=== PATIENT | female | born 1970 | race Caucasian/White ===

== ENCOUNTER → 2019-07-14 11:01 | Outpatient (BNVA) | payer MEDICAID, SELFPAY | PROVIDERS: Family Provider Nurse Practitioner Family; PCP Nurse Practitioner Family; Visit Provider Anesthesiology | DX: G89.29 Other chronic pain (principal); M47.816 Spondylosis without myelopathy or radiculopathy, lumbar region; M48.061 Spinal stenosis, lumbar region without neurogenic claudication; M54.16 Radiculopathy, lumbar region; M46.96 Unspecified inflammatory spondylopathy, lumbar region; M79.651 Pain in right thigh; M79.652 Pain in left thigh; M54.12 Radiculopathy, cervical region; M25.511 Pain in right shoulder; M25.512 Pain in left shoulder | CPT/HCPCS: 99214 ==

== ENCOUNTER 2019-08-25 11:45 | Outpatient (CLI) | payer MEDICAID, SELFPAY ==
--- NOTE | 2019-08-25 11:55 | XR_ITS ---
WS: [id number] Lumbar spine, 3 views, 08/25/2019 Clinical Data: BACK PAIN Comparison: Lateral lumbar spine, 10/07/2012.. Findings: No compression fractures are seen. There is degenerative disc narrowing at L5-S1.There is an anteroli sthesis of L5 on S1 of 1.1 cm.. The transverse processes and SI joints are normal. Bilateral L5-S1 spondylolysis is present. There are clips in the right upper quadrant from a cholecys tectomy. There is a large amount of fecal material throughout the colon. XR/XR lumbar spine 2-3V* [id number] Impression: 1. No change in grade 1 spondylolisthesis of L5 on S1. 2. No change in degenerative disc disease at L5-S1.
== END 2019-08-25 11:46 | disposition home or self-care (01) ==
PROVIDERS: Family Provider Nurse Practitioner Family; PCP Nurse Practitioner Family; Visit Provider Nurse Practitioner Family
DX: M43.17 Spondylolisthesis, lumbosacral region (principal); M51.37 Other intervertebral disc degeneration, lumbosacral region
CPT/HCPCS: 72100

== ENCOUNTER → 2019-09-06 12:58 | Outpatient (BNVA) | payer MEDICAID, SELFPAY | PROVIDERS: Family Provider Nurse Practitioner Family; PCP Nurse Practitioner Family; Visit Provider Nurse Practitioner | DX: G89.29 Other chronic pain (principal); M54.16 Radiculopathy, lumbar region; M54.2 Cervicalgia; Z79.891 Long term (current) use of opiate analgesic | CPT/HCPCS: 99213; 99214 ==

== ENCOUNTER → 2020-03-21 10:00 | Outpatient (BNVA) | payer MEDICAID, SELFPAY | PROVIDERS: Family Provider Nurse Practitioner Family; PCP Nurse Practitioner Family; Visit Provider Nurse Practitioner | DX: G89.29 Other chronic pain (principal); M54.16 Radiculopathy, lumbar region; M47.816 Spondylosis without myelopathy or radiculopathy, lumbar region; M48.061 Spinal stenosis, lumbar region without neurogenic claudication; M46.96 Unspecified inflammatory spondylopathy, lumbar region; M54.9 Dorsalgia, unspecified; M54.12 Radiculopathy, cervical region; M25.511 Pain in right shoulder; M25.512 Pain in left shoulder; R29.6 Repeated falls; Z79.891 Long term (current) use of opiate analgesic | CPT/HCPCS: 99213; 99214 ==

== ENCOUNTER 2020-04-17 13:33 | Outpatient (RCR) | payer MEDICARE, MEDICAID, SELFPAY | END 2020-05-11 23:59 | disposition home or self-care (01) | LOC: SPT 13:33 | PROVIDERS: PCP Nurse Practitioner Family; Referring Provider Nurse Practitioner; Visit Provider Nurse Practitioner | DX: M54.9 Dorsalgia, unspecified (principal); G89.29 Other chronic pain | CPT/HCPCS: 97110; 97162 ==

== ENCOUNTER → 2020-06-12 10:20 | Outpatient (BNVA) | payer MEDICARE, MEDICAID, SELFPAY | PROVIDERS: PCP Nurse Practitioner Family; Visit Provider Anesthesiology | DX: G89.29 Other chronic pain (principal); M54.12 Radiculopathy, cervical region; M25.511 Pain in right shoulder; M25.512 Pain in left shoulder; M54.16 Radiculopathy, lumbar region; M46.96 Unspecified inflammatory spondylopathy, lumbar region; M48.061 Spinal stenosis, lumbar region without neurogenic claudication; M47.816 Spondylosis without myelopathy or radiculopathy, lumbar region; M54.9 Dorsalgia, unspecified; Z79.891 Long term (current) use of opiate analgesic | CPT/HCPCS: 99214 ==

== ENCOUNTER → 2020-09-04 13:00 | Outpatient (BNVA) | payer MEDICARE, MEDICAID, SELFPAY | PROVIDERS: PCP Nurse Practitioner Family; Visit Provider Nurse Practitioner | DX: G89.29 Other chronic pain (principal); M54.16 Radiculopathy, lumbar region; M47.816 Spondylosis without myelopathy or radiculopathy, lumbar region; M48.061 Spinal stenosis, lumbar region without neurogenic claudication; M54.9 Dorsalgia, unspecified; M54.12 Radiculopathy, cervical region; Z79.891 Long term (current) use of opiate analgesic | CPT/HCPCS: 99214 ==

== ENCOUNTER → 2020-11-27 12:43 | Outpatient (BNVA) | payer MEDICARE, MEDICAID, SELFPAY | PROVIDERS: PCP Nurse Practitioner Family; Visit Provider Anesthesiology | DX: G89.29 Other chronic pain (principal); M54.16 Radiculopathy, lumbar region; M54.9 Dorsalgia, unspecified; M46.96 Unspecified inflammatory spondylopathy, lumbar region; M48.061 Spinal stenosis, lumbar region without neurogenic claudication; M47.816 Spondylosis without myelopathy or radiculopathy, lumbar region; M54.12 Radiculopathy, cervical region; Z79.891 Long term (current) use of opiate analgesic | CPT/HCPCS: 99214 ==

== ENCOUNTER 2021-02-27 11:44 | Outpatient (CLI) | payer MEDICARE, MEDICAID, SELFPAY ==
[2021-02-27 12:33] LABS: Estmated Average Glucose 154
[2021-02-27 12:49] LABS: Free T4 Free Thyroxine 1.09 ng/dL (0.82-1.77); Thyroid Stimulating Hormone 1.03 uIU/mL (0.27-4.20)
== END 2021-02-27 11:45 | disposition home or self-care (01) ==
LOC: LAB 11:52
PROVIDERS: PCP Nurse Practitioner Family; Visit Provider Internal Medicine
DX: E11.40 Type 2 diabetes mellitus with diabetic neuropathy, unspecified (principal)
CPT/HCPCS: 36415; 83036; 84439; 84443

== ENCOUNTER → 2021-03-26 13:46 | Outpatient (BNVA) | payer MEDICARE, MEDICAID, SELFPAY | PROVIDERS: PCP Nurse Practitioner Family; Visit Provider Anesthesiology | DX: G89.29 Other chronic pain (principal); M54.16 Radiculopathy, lumbar region; M48.061 Spinal stenosis, lumbar region without neurogenic claudication; M47.816 Spondylosis without myelopathy or radiculopathy, lumbar region; M46.96 Unspecified inflammatory spondylopathy, lumbar region; M54.12 Radiculopathy, cervical region; Z79.891 Long term (current) use of opiate analgesic | CPT/HCPCS: 99214 ==

== ENCOUNTER → 2021-07-16 14:24 | Outpatient (BNVA) | payer MEDICARE, MEDICAID, SELFPAY | PROVIDERS: PCP Nurse Practitioner Family; Visit Provider Internal Medicine | DX: E11.42 Type 2 diabetes mellitus with diabetic polyneuropathy (principal); E03.9 Hypothyroidism, unspecified; Z79.84 Long term (current) use of oral hypoglycemic drugs | CPT/HCPCS: 99214 ==

== ENCOUNTER → 2021-09-29 09:58 | Outpatient (BNVA) | payer MEDICARE, MEDICAID, SELFPAY | PROVIDERS: PCP Nurse Practitioner Family; Visit Provider Internal Medicine | DX: E11.40 Type 2 diabetes mellitus with diabetic neuropathy, unspecified (principal); E11.42 Type 2 diabetes mellitus with diabetic polyneuropathy; R29.6 Repeated falls; E03.9 Hypothyroidism, unspecified; Z79.84 Long term (current) use of oral hypoglycemic drugs | CPT/HCPCS: 80053; 80061; 83036; 84439; 84443; 99214 ==

== ENCOUNTER 2021-09-29 10:59 | Outpatient (CLI) | payer MEDICARE, MEDICAID, SELFPAY ==
[2021-09-29 12:09] LABS: Estmated Average Glucose 148; Hemoglobin A1C 6.8 % (4.0-6.0)
[2021-09-29 12:37] LABS: Alanine Aminotransferase 26 U/L (0-33); Albumin Level 4.5 g/dL (3.5-5.2); Alkaline Phosphatase 77 IU/L (35-105); Anion Gap 15.4 (5-19); Aspartate Amino Transferase 28 U/L (0-32); Blood Urea Nitrogen 11 mg/dL (6-20); Calcium 9.3 mg/dL (8.5-10.5); Carbon Dioxide 25 mmol/L (22-29); Chloride 104 mmol/L (98-107); Cholesterol 246 mg/dL (0-200); Globulin 3.2 g/dL (1.3-4.6); Glomerular Filtration Rate 87.5 mL/min (90-130); Glucose 113 mg/dL (65-115); HDL Cholesterol 60 mg/dL (60-100); LDL Cholesterol Calculated 157 mg/dL (50-129); LDL HDL Ratio 2.62 RATIO (0.00-3.22); Osmolality Calculated 290 mOsm/kg (285-295); Potassium 4.4 mmol/L (3.5-5.1); Sodium 140 mmol/L (136-145); Thyroid Stimulating Hormone 1.39 uIU/mL (0.27-4.20); Total Bilirubin 0.2 mg/dL (0.15-1.2); Total Protein 7.7 g/dL (6.6-8.7); Triglycerides 147 mg/dL (0-150)
[2021-09-29 12:38] LABS: Free T4 Free Thyroxine 1.15 ng/dL (0.82-1.77)
== END 2021-09-29 11:00 | disposition home or self-care (01) ==
LOC: LAB 11:10
PROVIDERS: PCP Nurse Practitioner Family; Visit Provider Internal Medicine
DX: E03.9 Hypothyroidism, unspecified (principal); E11.40 Type 2 diabetes mellitus with diabetic neuropathy, unspecified; R29.6 Repeated falls
CPT/HCPCS: 80053; 80061; 83036; 84439; 84443

== ENCOUNTER → 2021-10-09 09:35 | Outpatient (BNVA) | payer MEDICARE, MEDICAID, SELFPAY | PROVIDERS: PCP Nurse Practitioner Family; Visit Provider Internal Medicine | DX: E11.42 Type 2 diabetes mellitus with diabetic polyneuropathy (principal); E11.649 Type 2 diabetes mellitus with hypoglycemia without coma; E78.2 Mixed hyperlipidemia; E03.9 Hypothyroidism, unspecified; R29.6 Repeated falls; Z79.84 Long term (current) use of oral hypoglycemic drugs | CPT/HCPCS: 99214 ==

== ENCOUNTER → 2022-04-16 12:55 | Outpatient (BNVA) | payer MEDICARE, MEDICAID, SELFPAY | PROVIDERS: PCP Nurse Practitioner Family; Visit Provider Podiatrist Foot & Ankle Surgery | DX: E11.40 Type 2 diabetes mellitus with diabetic neuropathy, unspecified (principal); L60.3 Nail dystrophy; M20.41 Other hammer toe(s) (acquired), right foot; M20.42 Other hammer toe(s) (acquired), left foot; M21.41 Flat foot [pes planus] (acquired), right foot; M21.42 Flat foot [pes planus] (acquired), left foot; Z79.84 Long term (current) use of oral hypoglycemic drugs | CPT/HCPCS: 11055; 11721 ==

== ENCOUNTER 2022-04-18 07:38 | Emergency (ER) | payer MEDICARE, MEDICAID, SELFPAY ==
[2022-04-18 07:43] VITALS: BP 180/72; PULSE 84; RESP 15; TEMP 36.4; O2SAT 98; BMI 34.9
--- NOTE | 2022-04-18 07:43 | W.ED.FEMALGU ---
HPI - Female Genitourinary General: Chief complaint: Back Pain/Injury Stated complaint: kidney stones Time Seen by Provider: 04/18/22 07:43 History of Present Illness: back pain and hx of kidney stones Location of symptoms: low back Severity scale (1-10): 6 Associated symptoms: Reports abdominal pain and nausea Review of Systems General: Reports: 10 or more systems reviewed and unremarkable except in HPI and below Const: Denies: fever(s) or chills Resp: Denies: productive cough GI: Reports: abdominal pain, nausea and vomiting : Reports: flank pain Musc: Reports: back pain Bang/Lymph: Denies: easy bruising PFSH ED PFSH: Medical History Cervical radiculopathy DDD (degenerative disc disease) Encounter for long-term use of opiate analgesic Facet syndrome, lumbar Lumbar radiculitis Lumbar spondylitis Neck pain Shoulder pain, bilateral Spinal stenosis of lumbar region Type 2 diabetes mellitus Surgical History S/P section S/P cholecystectomy S/P hysterectomy Family History Other Cancer Social History Smoking and tobacco status: never smoked Second hand smoke exposure: No Alcohol intake: never Adopted: No Caregiver/support person: No Lives independently: Yes History of recent travel: No Physical Exam Const: COMMON NORMALS: no acute distress, patient oriented x3, no limitations and alert GENERAL APPEARANCE: cooperative and comfortable ORIENTATION/CONSCIOUSNESS: Yes awake, Yes oriented to person, Yes oriented to place and Yes oriented to time HENMT: COMMON NORMALS: normocephalic, atraumatic, external ears normal, EAC's normal, TM's normal bilaterally and Normal external nose present HEAD & SCALP: normal to inspection, normocephalic and atraumatic FACE & SINUS: normal facial exam, sinuses nontender and face symmetric NOSE: Normal external nose present, Normal nares present and No nasal discharge present EXTERNAL EAR: Yes external ears normal EXTERNAL AUDITORY CANAL: EAC's normal TYMPANIC MEMBRANE: TM's normal bilaterally MOUTH: Normal oral and palatal mucosa present, lip normal and tongue normal THROAT: posterior oropharynx normal, tonsils normal and uvula midline Eye: COMMON NORMALS: Equal, round and reactive pupils present, EOMs intact bilaterally and conjunctivae normal GENERAL EYE: appearance normal, both eyes and all related structures and normal light reflex EYELID: eyelids normal CONJUNCTIVA: Yes conjunctivae normal PUPIL: Yes Equal, round and reactive pupils present EOM: Yes EOM abnormal DIRECT OPHTHALMOSCOPY: Yes normal light reflex Neck/C-Spine: COMMON NORMALS: full ROM, no lymphadenopathy, supple, no meningeal signs, no JVD and Thyroid normal GENERAL: Yes normal visual inspection THYROID: Thyroid normal CERVICAL SPINE: Yes cervical ROM normal and Yes normal cervical lordosis Lymph: LYMPHATIC: no lymphadenopathy noted Chest: COMMONS NORMALS: normal inspection of the chest and normal palpation of entire chest wall Resp: COMMON NORMALS: normal respiratory effort, No retractions and clear to auscultation bilaterally AUSCULTATION: clear to auscultation bilaterally Cardio: COMMON NORMALS: no JVD, regular rate, regular rhythm, S1 normal heart sound present, S2 normal heart sound present, No gallops present (Cardio), No clicks present (Cardio), No murmurs present (Cardio), No rub (Cardio) and Peripheral pulses 2+ throughout RATE: regular rate RHYTHM: regular rhythm HEART SOUNDS: S1 normal heart sound present and S2 normal heart sound present PERIPHERAL PULSES: Peripheral pulses 2+ throughout GI: COMMON NORMALS: Normal to inspection, nondistended, normoactive bowel sounds present, Soft to palpation, non-tender and no masses PALPATION: Yes Soft to palpation : OTHER: CVA tenderness noted bilaterally Back/Pelvis: COMMON NORMALS: thoracic and lumbar spine normal to inspection, no thoracic nor lumbar tenderness and thoraco-lumbar ROM normal Extremity: COMMON NORMALS: normal to inspection, full ROM, capillary refill normal, no joint enlargement, no clubbing, cyanosis or edema, no calf tenderness and no pedal edema GENERAL: Yes normal exam except as noted Neuro: COMMON NORMALS: patient oriented x3, moves all extremities, no focal motor deficits, no sensory deficits noted and gait normal SENSORIUM/ORIENTATION: Yes alert, Yes oriented to person, Yes oriented to place and Yes oriented to time MENINGEAL SIGNS: Yes no meningeal signs Psych: COMMON NORMALS: mental status grossly normal, Normal thought process present, cooperative, normal affect, speech normal and activity/motor behavior normal SPEECH: Yes normal speech THOUGHT PROCESS: Normal thought process present Skin: COMMON NORMALS: no rashes or lesions noted, no wounds and turgor normal GENERAL SKIN EXAM: no rashes or lesions noted and turgor normal Course Vital Signs: Vital signs: Vital Signs Temperature 97.6 F 04/18/22 07:43 Pulse Rate 81 04/18/22 09:44 Respiratory Rate 16 04/18/22 10:43 Blood Pressure 143/81 04/18/22 09:44 Pulse Oximetry 99 04/18/22 09:44 Oxygen Delivery Me thod 04/18/22 09:44 MDM - Female Medical Decision Making Pt has hx of kidney stones that have been too large to pass; she presents after increasing pain x 1 week. She is still voiding well and her PCP placed her on pyridium but no UA was performed. Denies NV but pain has increased over the past 24 hours. Pt has a hard time sitting still during exam. Will order UA and labs; if blood in urine we will consider further imaging. Lab Data : 04/18/22 08:10 04/18/22 08:10 Radiology Impressions Abdomen/Pelvis CT 04/18/22 08:52 IMPRESSION: 1. There is a 5 mm stone at the right ureterovesical junction without hydronephrosis. 2. There is a 3 mm right middle lobe pulmonary nodule. For patients at low risk (minimal or absent history of smoking and of other known risk factors), no routine follow-up is indicated. For patients at high risk (history of smoking or of other known risk factors), consider optional CT Chest at 12 months. (Reference: Juan Pablo) REFERENCES: Juan Pablo Borrego, et al. Guidelines for Management of Incidental Pulmonary Nodules Detected on CT Images: From the Fleischner Society 2017. Radiology. 2017;284(1):228-243. Laboratory Results WBC 8.1 10^3/uL (4.0-10.0) 04/18/22 08:10 RBC 4.52 10^6/uL (4.1-5.3) 04/18/22 08:10 Hgb 12.1 g/dL (11.5-15.3) 04/18/22 08:10 Hct 40.0 % (37.0-47.0) 04/18/22 08:10 MCV 88.5 fl (81-99) 04/18/22 08:10 MCH 26.8 pg (28.0-34.0) L 04/18/22 08:10 MCHC 30.3 g/dL (30.0-36.0) 04/18/22 08:10 RDW 15.4 % (12.1-15.1) H 04/18/22 08:10 Plt Count 279 10^3/cmm (130-400) 04/18/22 08:10 MPV 11.7 fL (7.4-10.4) H 04/18/22 08:10 Neut % (Auto) 55.4 % 04/18/22 08:10 Lymph % (Auto) 33.3 % 04/18/22 08:10 [place] % (Auto) 4.7 % 04/18/22 08:10 Eos % (Auto) 5.3 % 04/18/22 08:10 Baso % (Auto) 0.9 % 04/18/22 08:10 Neut # (Auto) 4.50 10^3/uL (1.8-7.7) 04/18/22 08:10 Lymph # (Auto) 2.7 10^3/uL (0.8-4.8) 04/18/22 08:10 [place] # (Auto) 0.4 10^3/uL (0.2-0.9) 04/18/22 08:10 Eos # (Auto) 0.4 10^3/uL (0.0-0.8) 04/18/22 08:10 Baso # (Auto) 0.1 10^3/uL (0.0-0.1) 04/18/22 08:10 Nucleated RBC % (auto) 0 % 04/18/22 08:10 Nucleated RBCs # 0.0 /100WBC 04/18/22 08:10 Sodium 136 mmol/L (136-145) 04/18/22 08:10 Potassium 4.2 mmol/L (3.5-5.1) 04/18/22 08:10 Chloride 98 mmol/L (98-107) 04/18/22 08:10 Carbon Dioxide 23 mmol/L (22-29) 04/18/22 08:10 Anion Gap 19.2 (5-19) H 04/18/22 08:10 BUN 14 mg/dL (6-20) 04/18/22 08:10 Creatinine 0.6 mg/dL (0.5-0.9) 04/18/22 08:10 GFR Calculation 104.2 mL/min (90-130) 04/18/22 08:10 Glucose 310 mg/dL (65-115) H 04/18/22 08:10 Calculated Osmolality 294 mOsm/kg (285-295) 04/18/22 08:10 Calcium 9.0 mg/dL (8.5-10.5) 04/18/22 08:10 Total Bilirubin 0.2 mg/dL (0.15-1.2) 04/18/22 08:10 AST 43 U/L (0-32) H 04/18/22 08:10 ALT 47 U/L (0-33) H 04/18/22 08:10 Alkaline Phosphatase 95 U/L (35-105) 04/18/22 08:10 Total Protein 8.0 g/dL (6.6-8.7) 04/18/22 08:10 Albumin 4.3 g/dL (3.5-5.2) 04/18/22 08:10 Globulin 3.7 g/dL (1.3-4.6) 04/18/22 08:10 Urine Color [place] (Yellow) 04/18/22 08:10 Urine Appearance Sl hazy (CLEAR) A 04/18/22 08:10 Urine pH 7 (5-7) 04/18/22 08:10 Ur Specific [place] 1.015 (1.005-1.030) 04/18/22 08:10 Urine Protein TNP 04/18/22 08:10 Urine Glucose (UA) TNP 04/18/22 08:10 Urine Ketones TNP 04/18/22 08:10 Urine Blood TNP 04/18/22 08:10 Urine Nitrate TNP 04/18/22 08:10 Urine Bilirubin TNP 04/18/22 08:10 Prot Sulfosalicylic Acd Negative (Negative) 04/18/22 08:10 Urine Urobilinogen TNP 04/18/22 08:10 Ur Leukocyte Esterase TNP 04/18/22 08:10 Urine RBC 0-4 /hpf (0-2) H 04/18/22 08:10 Urine WBC 0-4 /hpf (0-5) H 04/18/22 08:10 Ur Squamous Epith Cells 10-15 /hpf (0-5) H 04/18/22 08:10 Amorphous Sediment Not Reportable 04/18/22 08:10 Urine Bacteria Trace /hpf (NONE) 04/18/22 08:10 Urine Mucus Trace /hpf 04/18/22 08:10 Urine Yeast Trace /hpf 04/18/22 08:10 Imaging Data Other Xray: Radiologist's impression: [employer] [address] [address] Scan Report Signed Patient: Adilia Campuzano Unit #: [id number] : 1970 Age/Sex: 52 / F ADM Date: 04/18/22 Loc: ER Room/Bed: Attending Dr: Ordering Provider/Ordering MD: Phoebe Solitario NP Date of Service: 04/18/22 Procedure(s): CT kidney stone 39840 Accession Number(s): [id number] Report Number: [id number] PROCEDURE INFORMATION: Exam: CT Abdomen And Pelvis Without Contrast Exam date and time: 04/18/2022 9:09 AM Age: 52 years old Clinical indication: Abdominal pain; Flank; Right; Prior surgery; Surgery type: Gb, hyster; Additional info: Back pain/hx of stones TECHNIQUE: Imaging protocol: Computed tomography of the abdomen and pelvis without contrast. Radiation optimization: All CT scans at this facility use at least one of these dose optimization techniques: automated exposure control; mA and/or kV adjustment per patient size (includes targeted exams where dose is matched to clinical indication); or iterative reconstruction. COMPARISON: CT lumbar spine wo con* [id number] 03/06/2017 10:34 AM RADIATION DOSE METRICS: Total DLP (mGy-cm): 1063.46 FINDINGS: Lungs: There is a 3 mm right middle lobe pulmonary nodule. Liver: Hepatic steatosis and hepatomegaly. Gallbladder and bile ducts: Cholecystectomy. Pancreas: Normal. No ductal dilation. Spleen: Normal. No splenomegaly. Adrenal glands: Normal. No mass. Kidneys and ureters: There is a 5 mm stone at the right ureterovesical junction without hydronephrosis. Nonobstructing left renal calculi measure up to 5 mm. Stomach and bowel: Unremarkable. No obstruction. No mucosal thickening. Appendix: No evidence of appendicitis. Intraperitoneal space: Unremarkable. No free air. No significant fluid collection. Vasculature: Unremarkable. No abdominal aortic aneurysm. Lymph nodes: Unremarkable. No enlarged lymph nodes. Urinary bladder: Unremarkable as visualized. Reproductive: Hysterectomy. Bones/joints: Bilateral L4 pars defects with grade 2 anterolisthesis of L4 on L5. Soft tissues: Unremarkable. CT/CT kidney stone 41795 IMPRESSION: 1. There is a 5 mm stone at the right ureterovesical junction without hydronephrosis. 2. There is a 3 mm right middle lobe pulmonary nodule. For patients at low risk (minimal or absent history of smoking and of other known risk factors), no routine follow-up is indicated. For patients at high risk (history of smoking or of other known risk factors), consider optional CT Chest at 12 months. (Reference: Juan Pablo) REFERENCES: Juan Pablo Borrego et al. Guidelines for Management of Incidental Pulmonary Nodules Detected on CT Images: From the Fleischner Society 2017. Radiology. 2017;284(1):228-243. Discharge Plan Discharge Patient Disposition: Home Clinical Impression: Bilateral kidney stones Condition: Stable Prescriptions: New Flomax 0.4 mg capsule 0.4 mg PO DAILY Qty: 7 0RF ketorolac 10 mg tablet 10 mg PO Q8H PRN (Reason: pain) Qty: 10 0RF ondansetron 4 mg tablet,disintegrating 4 mg PO Q8H Qty: 10 0RF No Action ropinirole 1 mg tablet 1 mg PO .at bedtime venlafaxine [Effexor XR] 150 mg capsule,extended release 24hr 150 mg PO QAM Allergy Relief (cetirizine) 10 mg capsule 10 mg PO ONCE venlafaxine 75 mg capsule,extended release 24hr 75 mg PO QAM Trokendi XR 100 mg capsule,extended release 24hr 100 mg PO BID glipizide 10 mg tablet 10 mg PO BID mupirocin 2 % ointment 1 applic TOPICAL BID 14 Days Qty: 15 0RF (DME) Diabetic shoes See Rx Instructions .ROUTE .MEDSUPPLY Qty: 1 0RF Rx Instructions: with 3 inserts levothyroxine 75 mcg capsule 75 mcg PO ONCE buspirone 15 mg tablet 15 mg PO BID PRN metoprolol tartrate 50 mg tablet 50 mg PO DAILY montelukast 10 mg tablet 10 mg PO DAILY pantoprazole [Protonix] 40 mg tablet,delayed release (DR/EC) 40 mg PO BID metformin 1,000 mg tablet 1,000 mg PO BID 90 Days Qty: 180 3RF Rx Instructions: take 1 tablet twice a day Januvia 100 mg tablet 100 mg PO DAILY 90 Days Qty: 90 3RF Rx Instructions: take 1 tablet daily silver sulfadiazine [Silvadene] 1 % cream 1 applic topical BID Qty: 50 0RF Rx Instructions: apply a 1.5 mm thickness amoxicillin 500 mg capsule 1,000 mg PO BID tramadol 50 mg tablet 100 mg PO TID PRN (Reason: pain) 30 Days Qty: 180 2RF Rx Instructions: Fill on or after 03/26/21, 04/25/21 and 05/25/21 gabapentin 800 mg tablet 800 mg PO TID 30 Days Qty: 90 2RF (DME) blood-glucose meter Misc See Rx Instructions .Route Qty: 1 0RF Rx Instructions: Check BS 4-6 times a day. (DME) pen needle, diabetic 31 gauge x 5/16 needle See Rx Instructions .Route Qty: 100 3RF Rx Instructions: As directed (DME) OneTouch Verio test strips Strip See Rx Instructions .Route Qty: 100 3RF Rx Instructions: As directed (DME) lancets [OneTouch Delica Lancets] 33 gauge misc See Rx Instructions .Route Qty: 100 3RF Rx Instructions: As directed Januvia 100 mg tablet 100 mg PO DAILY Qty: 90 3RF Rx Instructions: Take one tablet by mouth daily. 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
[2022-04-18] MEDS: sodium chloride 0.9% 500 ML 999 ML IV (08:15)
[2022-04-18] MEDS: ondansetron 2 mg/ML SDV 2 mL 4 MG IVP (08:15)
[2022-04-18] MEDS: ketorolac 30 mg/mL INJ IVP (08:15)
[2022-04-18 08:23] LABS: Basophils # 0.1 10^3/uL (0.0-0.1); Basophils % 0.9 %; Eosinophils # 0.4 10^3/uL (0.0-0.8); Eosinophils % 5.3 %; Hemoglobin 12.1 g/dL (11.5-15.3); Lymphocytes # 2.7 10^3/uL (0.8-4.8); Lymphocytes % 33.3 %; Mean Corpuscular HGB Conc 30.3 g/dL (30.0-36.0); Mean Corpuscular Hemoglobin 26.8 pg (28.0-34.0); Mean Corpuscular Volume 88.5 fl (81-99); Mean Platelet Volume 11.7 fL (7.4-10.4); Monocytes # 0.4 10^3/uL (0.2-0.9); Monocytes % 4.7 %; Neutrophils % 55.4 %; Nucleated Red Blood Cells % 0 %; Platelet Count 279 10^3/cmm (130-400); Red Blood Count 4.52 10^6/uL (4.1-5.3); Red Cell Distribution Width 15.4 % (12.1-15.1); White Blood Count 8.1 10^3/uL (4.0-10.0)
[2022-04-18 08:35] VITALS: BP 145/78; PULSE 82; RESP 21; O2SAT 98
[2022-04-18 08:40] LABS: Specific Gravity, Urine 1.015 (1.005-1.030); Urine Appearance SL Hazy (CLEAR); Urine Color Orange (Yellow); pH Urine 7 (5-7)
[2022-04-18 08:43] LABS: Add Urine Microscopic? YES; Sulfosalicylic Acid Urine Negative (Negative)
[2022-04-18 08:45] LABS: Alanine Aminotransferase 47 U/L (0-33); Albumin Level 4.3 g/dL (3.5-5.2); Alkaline Phosphatase 95 U/L (35-105); Anion Gap 19.2 (5-19); Aspartate Amino Transferase 43 U/L (0-32); Blood Urea Nitrogen 14 mg/dL (6-20); Carbon Dioxide 23 mmol/L (22-29); Chloride 98 mmol/L (98-107); Globulin 3.7 g/dL (1.3-4.6); Glomerular Filtration Rate 104.2 mL/min (90-130); Glucose 310 mg/dL (65-115); Osmolality Calculated 294 mOsm/kg (285-295); Potassium 4.2 mmol/L (3.5-5.1); Sodium 136 mmol/L (136-145); Total Bilirubin 0.2 mg/dL (0.15-1.2)
[2022-04-18 08:46] LABS: Bacteria Urine TRACE /hpf
[2022-04-18 08:47] LABS: RBC Urine 0-4 /hpf (0-2); WBC Urine 0-4 /hpf (0-5)
[2022-04-18 08:48] LABS: Add Urine Culture? No; Mucus Urine TRACE /hpf
--- NOTE | 2022-04-18 08:52 | CTR_ITS ---
PROCEDURE INFORMATION: Exam: CT Abdomen And Pelvis Without Contrast Exam date and time: 04/18/2022 9:09 AM Age: 52 years old Clinical indication: Abdominal pain; Flank; Right; Prior surgery; Surgery type: Gb, hyster; Additional info: Back pain/hx of stones TECHNIQUE: Imaging protocol: Computed tomography of the abdomen and pelvis without contrast. Radiation optimization: All CT scans at this facility use at least one of these dose optimization techniques: automated exposure control; mA and/or kV adjustment per patient size (includes targeted exams where dose is matched to clinical indication); or iterative reconstruction. COMPARISON: CT lumbar spine wo con* [id number] 03/06/2017 10:34 AM RADIATION DOSE METRICS: Total DLP (mGy-cm): 1063.46 FINDINGS: Lungs: There is a 3 mm right middle lobe pulmonary nodule. Liver: Hepatic steatosis and hepatomegaly. Gallbladder and bile ducts: Cholecystectomy. Pancreas: Normal. No ductal dilation. Spleen: Normal. No splenomegaly. Adrenal glands: Normal. No mass. Kidneys and ureters: There is a 5 mm stone at the right ureterovesical junction without hydronephrosis. Nonobstructing left renal calculi measure up to 5 mm. Stomach and bowel: Unremarkable. No obstruction. No mucosal thickening. Appendix: No evidence of appendicitis. Intraperitoneal space: Unremarkable. No free air. No significant fluid collection. Vasculature: Unremarkable. No abdominal aortic aneurysm. Lymph nodes: Unremarkable. No enlarged lymph nodes. Urinary bladder: Unremarkable as visualized. Reproductive: Hysterectomy. Bones/joints: Bilateral L4 pars defects with grade 2 anterolisthesis of L4 on L5. Soft tissues: Unremarkable. CT/CT kidney stone [id number] IMPRESSION: 1. There is a 5 mm stone at the right ureterovesical junction without hydronephrosis. 2. There is a 3 mm right middle lobe pulmonary nodule. For patients at low risk (minimal or absent history of smoking and of other known risk factors), no routine follow-up is indicated. For patients at high risk (history of smoking or of other known risk factors), consider optional CT Chest at 12 months. (Reference: Juan Pablo) REFERENCES: Juan Pablo Borrego et al. Guidelines for Management of Incidental Pulmonary Nodules Detected on CT Images: From the Fleischner Society 2017. Radiology. 2017;284(1):228-243.
[2022-04-18 09:44] VITALS: BP 143/81; PULSE 81; RESP 16; O2SAT 99
[2022-04-18 10:43] VITALS: RESP 16
[2022-04-18] MEDS: HYDROmorphone 1 mg/mL INJ 1 mL IVP (10:43)
[2022-04-18 11:27] VITALS: BP 146/77; PULSE 84; RESP 16; O2SAT 98
== END 2022-04-18 11:28 | disposition home or self-care (01) ==
PROVIDERS: Emergency Provider Nurse Practitioner Family; PCP Nurse Practitioner Family
DX: N20.0 Calculus of kidney (principal); Z79.84 Long term (current) use of oral hypoglycemic drugs; E11.9 Type 2 diabetes mellitus without complications
CPT/HCPCS: 74176; 80053; 81001; 85025; 96361; 96374; 96375; 99285; J1170; J1885; J2405; J7040

== ENCOUNTER 2022-04-20 14:28 | Emergency (ER) | payer MEDICARE, MEDICAID, SELFPAY ==
[2022-04-20 14:45] VITALS: BP 147/80; PULSE 91; RESP 18; TEMP 36.7; O2SAT 96; BMI 34.9
[2022-04-20 16:59] LABS: Basophils # 0.1 10^3/uL (0.0-0.1); Basophils % 0.8 %; Eosinophils # 0.4 10^3/uL (0.0-0.8); Eosinophils % 4.5 %; Lymphocytes # 2.7 10^3/uL (0.8-4.8); Lymphocytes % 34.2 %; Mean Corpuscular HGB Conc 29.7 g/dL (30.0-36.0); Mean Corpuscular Hemoglobin 26.4 pg (28.0-34.0); Mean Corpuscular Volume 88.7 fl (81-99); Mean Platelet Volume 11.6 fL (7.4-10.4); Monocytes # 0.4 10^3/uL (0.2-0.9); Monocytes % 5.6 %; Neutrophils # 4.23 10^3/uL (1.8-7.7); Neutrophils % 54.6 %; Nucleated Red Blood Cells % 0 %; Platelet Count 240 10^3/cmm (130-400); Red Blood Count 4.17 10^6/uL (4.1-5.3); Red Cell Distribution Width 15.8 % (12.1-15.1); White Blood Count 7.7 10^3/uL (4.0-10.0)
[2022-04-20 17:12] LABS: Alanine Aminotransferase 43 U/L (0-33); Albumin Level 3.9 g/dL (3.5-5.2); Alkaline Phosphatase 90 U/L (35-105); Aspartate Amino Transferase 38 U/L (0-32); Blood Urea Nitrogen 11 mg/dL (6-20); Calcium 9.1 mg/dL (8.5-10.5); Carbon Dioxide 23 mmol/L (22-29); Chloride 101 mmol/L (98-107); Globulin 3.6 g/dL (1.3-4.6); Glomerular Filtration Rate 104.2 mL/min (90-130); Glucose 211 mg/dL (65-115); Lipase 42 U/L (13-60); Osmolality Calculated 288 mOsm/kg (285-295); Sodium 136 mmol/L (136-145); Total Bilirubin 0.2 mg/dL (0.15-1.2); Total Protein 7.5 g/dL (6.6-8.7)
--- NOTE | 2022-04-20 17:37 | ED_ITS ---
HPI - Abdominal Pain General: Chief Complaint: Abdominal Pain Stated Complaint: Possible kidney stones Time Seen by Provider: 04/20/22 17:33 History of Present Illness: 52-year-old female comes in today with complaints of bilateral flank pain. Patient was seen 2 days ago and was diagnosed with renal stones. Review of the CT scan noted that patient had a kidney stone in the right UVJ that was approximately 5 mm but no sign of obstruction was noted. Patient also had a renal stone that was approximately 3 mm in the left kidney. Patient was prescribed some Toradol but was not able to fill the medication due to noninsurance payment. Patient came in today for complaints of the pain. Review of Systems : Reports: flank pain PFS ED PFSH: Medical History Cervical radiculopathy DDD (degenerative disc disease) Encounter for long-term use of opiate analgesic Facet syndrome, lumbar Lumbar radiculitis Lumbar spondylitis Neck pain Shoulder pain, bilateral Spinal stenosis of lumbar region Type 2 diabetes mellitus Surgical History S/P section S/P cholecystectomy S/P hysterectomy Family History Other Cancer Social History Smoking and tobacco status: never smoked Second hand smoke exposure: No Alcohol intake: never Adopted: No Caregiver/support person: No Lives independently: Yes History of recent travel: No Physical Exam Const: COMMON NORMALS: alert HENMT: COMMON NORMALS: normocephalic HEAD & SCALP: normocephalic Neck/C-Spine: COMMON NORMALS: full ROM Resp: COMMON NORMALS: normal respiratory effort Cardio: COMMON NORMALS: regular rate RATE: regular rate GI: COMMON NORMALS: Soft to palpation PALPATION: Yes Soft to palpation : BLADDER/KIDNEY EXAM: Yes CVA tenderness Back/Pelvis: GENERAL BACK: Yes CVA tenderness Extremity: COMMON NORMALS: no pedal edema Neuro: SENSORIUM/ORIENTATION: Yes alert Course Vital Signs: Vital signs: Vital Signs Temperature 98.0 F 04/20/22 14:45 Pulse Rate 91 04/20/22 14:45 Respiratory Rate 15 04/20/22 17:58 Blood Pressure 147/80 04/20/22 14:45 Pulse Oximetry 96 04/20/22 17:58 Oxygen Delivery Me thod 04/20/22 14:45 MDM - Abdominal Pain Medical Decision Making Patient came in today for poor control of renal stone colic. On exam patient appears nontoxic. Patient increased on the right versus the left. Abdomen soft nontender. Vital signs were unremarkable. CBC and CMP were stable. Urinalysis was unremarkable. Patient was written prescription for hydrocodone for renal colic pain. Case management was requested to help patient with follow-up with urology for further evaluation and treatment. Patient stated understanding and agreed to plan. Lab Data : 04/20/22 16:39 04/20/22 16:39 Labs/Radiology: Laboratory Results WBC 7.7 10^3/uL (4.0-10.0) 04/20/22 16:39 RBC 4.17 10^6/uL (4.1-5.3) 04/20/22 16:39 Hgb 11.0 g/dL (11.5-15.3) L 04/20/22 16:39 Hct 37.0 % (37.0-47.0) 04/20/22 16:39 MCV 88.7 fl (81-99) 04/20/22 16:39 MCH 26.4 pg (28.0-34.0) L 04/20/22 16:39 MCHC 29.7 g/dL (30.0-36.0) L 04/20/22 16:39 RDW 15.8 % (12.1-15.1) H 04/20/22 16:39 Plt Count 240 10^3/cmm (130-400) 04/20/22 16:39 MPV 11.6 fL (7.4-10.4) H 04/20/22 16:39 Neut % (Auto) 54.6 % 04/20/22 16:39 Lymph % (Auto) 34.2 % 04/20/22 16:39 Teller % (Auto) 5.6 % 04/20/22 16:39 Eos % (Auto) 4.5 % 04/20/22 16:39 Baso % (Auto) 0.8 % 04/20/22 16:39 Neut # (Auto) 4.23 10^3/uL (1.8-7.7) 04/20/22 16:39 Lymph # (Auto) 2.7 10^3/uL (0.8-4.8) 04/20/22 16:39 Teller # (Auto) 0.4 10^3/uL (0.2-0.9) 04/20/22 16:39 Eos # (Auto) 0.4 10^3/uL (0.0-0.8) 04/20/22 16:39 Baso # (Auto) 0.1 10^3/uL (0.0-0.1) 04/20/22 16:39 Nucleated RBC % (auto) 0 % 04/20/22 16:39 Nucleated RBCs # 0.0 /100WBC 04/20/22 16:39 Sodium 136 mmol/L (136-145) 04/20/22 16:39 Potassium 4.0 mmol/L (3.5-5.1) 04/20/22 16:39 Chloride 101 mmol/L (98-107) 04/20/22 16:39 Carbon Dioxide 23 mmol/L (22-29) 04/20/22 16:39 Anion Gap 16.0 (5-19) 04/20/22 16:39 BUN 11 mg/dL (6-20) 04/20/22 16:39 Creatinine 0.6 mg/dL (0.5-0.9) 04/20/22 16:39 GFR Calculation 104.2 mL/min (90-130) 04/20/22 16:39 Glucose 211 mg/dL (65-115) H 04/20/22 16:39 Calculated Osmolality 288 mOsm/kg (285-295) 04/20/22 16:39 Calcium 9.1 mg/dL (8.5-10.5) 04/20/22 16:39 Total Bilirubin 0.2 mg/dL (0.15-1.2) 04/20/22 16:39 AST 38 U/L (0-32) H 04/20/22 16:39 ALT 43 U/L (0-33) H 04/20/22 16:39 Alkaline Phosphatase 90 U/L (35-105) 04/20/22 16:39 Total Protein 7.5 g/dL (6.6-8.7) 04/20/22 16:39 Albumin 3.9 g/dL (3.5-5.2) 04/20/22 16:39 Globulin 3.6 g/dL (1.3-4.6) 04/20/22 16:39 Lipase 42 U/L (13-60) 04/20/22 16:39 Urine Color [place] (Yellow) 04/20/22 Unknown Urine Appearance Clear (CLEAR) 04/20/22 Unknown Urine pH Not Reportable 04/20/22 Unknown Ur Specific [place] Not Reportable 04/20/22 Unknown Urine Protein Not Reportable 04/20/22 Unknown Urine Glucose (UA) Not Reportable 04/20/22 Unknown Urine Ketones Not Reportable 04/20/22 Unknown Urine Blood Not Reportable 04/20/22 Unknown Urine Nitrate Not Reportable 04/20/22 Unknown Urine Bilirubin Not Reportable 04/20/22 Unknown Prot Sulfosalicylic Acd Negative (Negative) 04/20/22 Unknown Urine Urobilinogen Not Reportable 04/20/22 Unknown Ur Leukocyte Esterase Not Reportable 04/20/22 Unknown Urine RBC None /hpf (0-2) 04/20/22 Unknown Urine WBC 5-10 /hpf (0-5) H 04/20/22 Unknown Ur Squamous Epith Cells 5-10 /hpf (0-5) H 04/20/22 Unknown Calcium Oxalate Crystal 15-25 /hpf H 04/20/22 Unknown Amorphous Sediment Not Reportable 04/20/22 Unknown Urine Bacteria 1+ /hpf (NONE) H 04/20/22 Unknown Urine Mucus Trace /hpf 04/20/22 Unknown Discharge Plan Discharge Patient Disposition: Home Clinical Impression: Calculi, ureter, Bilateral kidney stones Condition: Stable Prescriptions: New hydrocodone-acetaminophen 5-325 mg tablet 1 tab PO Q6H PRN (Reason: pain (scale score 7-10)) Qty: 14 0RF No Action ropinirole 1 mg tablet 1 mg PO .at bedtime venlafaxine [Effexor XR] 150 mg capsule,extended release 24hr 150 mg PO QAM Allergy Relief (cetirizine) 10 mg capsule 10 mg PO ONCE venlafaxine 75 mg capsule,extended release 24hr 75 mg PO QAM Trokendi XR 100 mg capsule,extended release 24hr 100 mg PO BID glipizide 10 mg tablet 10 mg PO BID mupirocin 2 % ointment 1 applic TOPICAL BID 14 Days Qty: 15 0RF (DME) Diabetic shoes See Rx Instructions .ROUTE .MEDSUPPLY Qty: 1 0RF Rx Instructions: with 3 inserts levothyroxine 75 mcg capsule 75 mcg PO ONCE buspirone 15 mg tablet 15 mg PO BID PRN metoprolol tartrate 50 mg tablet 50 mg PO DAILY montelukast 10 mg tablet 10 mg PO DAILY pantoprazole [Protonix] 40 mg tablet,delayed release (DR/EC) 40 mg PO BID metformin 1,000 mg tablet 1,000 mg PO BID 90 Days Qty: 180 3RF Rx Instructions: take 1 tablet twice a day Januvia 100 mg tablet 100 mg PO DAILY 90 Days Qty: 90 3RF Rx Instructions: take 1 tablet daily silver sulfadiazine [Silvadene] 1 % cream 1 applic topical BID Qty: 50 0RF Rx Instructions: apply a 1.5 mm thickness amoxicillin 500 mg capsule 1,000 mg PO BID tramadol 50 mg tablet 100 mg PO TID PRN (Reason: pain) 30 Days Qty: 180 2RF Rx Instructions: Fill on or after 03/26/21, 04/25/21 and 05/25/21 gabapentin 800 mg tablet 800 mg PO TID 30 Days Qty: 90 2RF (DME) blood-glucose meter Misc See Rx Instructions .Route Qty: 1 0RF Rx Instructions: Check BS 4-6 times a day. (DME) pen needle, diabetic 31 gauge x 5/16 needle See Rx Instructions .Route Qty: 100 3RF Rx Instructions: As directed (DME) OneTouch Verio test strips Strip See Rx Instructions .Route Qty: 100 3RF Rx Instructions: As directed (DME) lancets [OneTouch Delica Lancets] 33 gauge misc See Rx Instructions .Route Qty: 100 3RF Rx Instructions: As directed Januvia 100 mg tablet 100 mg PO DAILY Qty: 90 3RF Rx Instructions: Take one tablet by mouth daily. acarbose 50 mg tablet 50 mg PO TID 90 Days Qty: 270 3RF Rx Instructions: take 1 tablet 3 times a day Flomax 0.4 mg capsule 0.4 mg PO DAILY Qty: 7 0RF ketorolac 10 mg tablet 10 mg PO Q8H PRN (Reason: pain) Qty: 10 0RF ondansetron 4 mg tablet,disintegrating 4 mg PO Q8H Qty: 10 0RF Discharge Orders: Discharge ED (Routine); Ordered 04/20/22 Ordered By: Manuel Montoya Referrals: Andreina Shaffer APN [Primary Care Provider] - Discharge Diet: Usual diet Discharge Activity: Increase activity as tolerated Patient Instructions: Kidney Stones (ED), Opioid Safety, Pain Management Activity Restrictions/Additional Instructions: Continue routine medications. Follow-up with urologist for further evaluation and treatment. Return to ER for fever greater than 100.4, uncontrolled pain, or new concerns. Coding Level of Care Code ED Display Screen Fabricator for Chg Fwd Exam Comprehensive
[2022-04-20 17:45] VITALS: BP 116/64; PULSE 82; RESP 14; O2SAT 97
[2022-04-20 17:46] LABS: Urine Appearance Clear (CLEAR)
[2022-04-20 17:47] LABS: Urine Color Orange (Yellow)
[2022-04-20 17:48] LABS: Add Urine Microscopic? YES; Sulfosalicylic Acid Urine Negative (Negative)
[2022-04-20 17:54] LABS: Add Urine Culture? No; Bacteria Urine 1+ /hpf; Calcium Oxalate Crystals Urine 15-25 /hpf; Mucus Urine TRACE /hpf
[2022-04-20] MEDS: ondansetron 2 mg/ML SDV 2 mL 4 MG IVP (17:57)
[2022-04-20] MEDS: ketorolac 30 mg/mL INJ 15 MG IVP (17:57)
[2022-04-20 17:58] VITALS: RESP 15; O2SAT 96
[2022-04-20] MEDS: morphine 4 mg/mL SDV 1 mL IVP (17:58)
--- NOTE | 2022-04-21 08:40 | DCPLANNER ---
Addendum entered by Ivett English 07/01/22 11:22: Patient had a follow up appointment scheduled with urology - patient did attend appointment. Addendum entered by Ivett English 04/23/22 14:56: Patient has a follow up appointment scheduled for Wednesday, April 29, 2022 at 8:30 with Georgette Burton at urology. Clinic will call patient with appointment information. Original Note: cinema or theatre manager had message to schedule a follow up appointment for patient with urology. cinema or theatre manager sent patients information to the front office staff at urology. Patients information will be printed and reviewed. Clinic will call patient with appointment information.
== END 2022-04-20 18:30 | disposition home or self-care (01) ==
PROVIDERS: Family Medicine; Emergency Provider Nurse Practitioner Family; PCP Nurse Practitioner Family
DX: N20.1 Calculus of ureter (principal); N20.0 Calculus of kidney
CPT/HCPCS: 36415; 80053; 81001; 83690; 85025; 96374; 96375; 99284; J1885; J2270; J2405

== ENCOUNTER 2022-04-29 07:11 | Outpatient (CLI) | payer MEDICARE, MEDICAID, SELFPAY ==
--- NOTE | 2022-04-29 07:41 | XR_ITS ---
WS: [id number] KUB, AP view, 04/29/2022 Clinical Data: STONES Comparison: CT kidney stone, 04/18/2022. Findings: No abnormal intraabdominal masses or calcifications are seen. There is no dilatated small bowel or ev idence of obstruction. Bowel gas obscures detail over both kidneys. No abnormal intrapelvic calcifications are seen. XR/XR KUB [id number] Impression: Negative KUB.
== END 2022-04-29 07:12 | disposition home or self-care (01) ==
LOC: RAD 07:13
PROVIDERS: PCP Nurse Practitioner Family; Visit Provider Nurse Practitioner Family
DX: N20.1 Calculus of ureter (principal); N39.0 Urinary tract infection, site not specified
CPT/HCPCS: 74018; 81003; 87086; 99203; 99204

== ENCOUNTER 2022-05-08 10:13 | Outpatient (CLI) | payer MEDICARE, MEDICAID, SELFPAY ==
--- NOTE | 2022-05-08 11:18 | XR_ITS ---
WS: [id number] Exam: XR KUB [id number] Date/Time of Exam: 05/08/2022 11:18 AM Reason For Exam: STONES No bowel obstruction or free air. Several calcifications superimpose the left kidney and apparently r epresent known renal stones. There are also calcifications in the right abdomen which are nonspecific . No sign of organ enlargement. Bony structures are intact. Nonspecific bilateral pelvic calcificatio ns. Signs of prior cholecystectomy. XR/XR KUB [id number] IMPRESSION: 1. Calcifications superimposing the left kidney apparently representing known r enal stones. Additional right abdominal calcifications are nonspecific. 2. No acute abdominal process. 3. Other minor findings as above.
== END 2022-05-08 10:14 | disposition home or self-care (01) ==
LOC: RAD 10:15
PROVIDERS: PCP Nurse Practitioner Family; Visit Provider Urology
DX: N20.1 Calculus of ureter (principal); N39.0 Urinary tract infection, site not specified
CPT/HCPCS: 74018; 81003; 99214

== ENCOUNTER 2022-05-11 06:15 | Day surgery (SDC) | payer MEDICARE, MEDICAID, SELFPAY ==
[2022-05-08 15:21] VITALS: BMI 34.2
[2022-05-08 15:50] LABS: Basophils # 0.1 10^3/uL (0.0-0.1); Basophils % 0.9 %; Eosinophils # 0.6 10^3/uL (0.0-0.8); Eosinophils % 6.7 %; Hematocrit 38.8 % (37.0-47.0); Lymphocytes # 3.1 10^3/uL (0.8-4.8); Lymphocytes % 32.7 %; Mean Corpuscular HGB Conc 30.9 g/dL (30.0-36.0); Mean Corpuscular Hemoglobin 26.8 pg (28.0-34.0); Mean Corpuscular Volume 86.6 fl (81-99); Mean Platelet Volume 11.5 fL (7.4-10.4); Monocytes # 0.4 10^3/uL (0.2-0.9); Monocytes % 4.2 %; Neutrophils # 5.15 10^3/uL (1.8-7.7); Neutrophils % 54.9 %; Nucleated Red Blood Cells % 0 %; Platelet Count 271 10^3/cmm (130-400); Red Blood Count 4.48 10^6/uL (4.1-5.3); Red Cell Distribution Width 17.6 % (12.1-15.1); White Blood Count 9.4 10^3/uL (4.0-10.0)
--- NOTE | 2022-05-08 15:58 | ANES.PREANE2 ---
Pre-Anesthetic Assessment Height/Weight: Height 1.73 m Weight 102.058 kg Preop Diagnosis: Refractory right distal ureteral stone Operation Date: 05/11/22 08:10 Proposed Procedures p CYSTOSCOPY RIGHT RETROGRADE URETEROSCOPY LASER STENT [address] [facility] 26 [id number],N20.1,N39.0(Not Applicable) - Loco Siddiqui MD s Retrograde Pyelogram(Right) - MD jody Holley Ureteroscopy(Right) - MD jody Holley Laser Lithotripsy(Right) - Loco Siddiqui MD s Ureteral Stent Placement(Right) - Loco Siddiqui MD Familial anesthetic complications: none Was Beta Dmitry taken within 24 hours: Yes Was Clonidine taken within 24 hours: N/A Social No alcohol and No tobacco Exam alert, oriented x 3, clear to auscultation bilaterally and regular rate & rhythm Airway Submandibular: within normal limits Cervical ROM: within normal limits Mallampati: Class II Dentition: partials CV/HEM Hypertension GI Gastroesophageal Reflux Disease Metabolic Diabetes Mellitus and Thyroid Disease Musc/skel Lower Back Pain and Osteoarthritis/DJD chronic pain/opioid Anesthetic Plan ASA status: 3 Anesthesia: General Medications/Allergies Home Medications Medication Instructions Recorded Confirmed Last Taken Type cetirizine 10 mg capsule (Allergy 10 mg PO ONCE 07/07/19 05/08/22 05/08/22 History Relief (cetirizine)) ropinirole 1 mg tablet 1 mg PO .at bedtime 07/07/19 05/08/22 05/07/22 20:00 History venlafaxine 150 mg 150 mg PO QAM 07/07/19 05/08/22 05/08/22 History capsule,extended release 24 hr (Effexor XR) venlafaxine 75 mg capsule,extended 75 mg PO QAM 07/07/19 05/08/22 05/08/22 History release 24 hr topiramate 100 mg capsule,extended 100 mg PO BID 07/14/19 05/08/22 05/08/22 History release 24 hr (Trokendi XR) glipizide 10 mg tablet 10 mg PO BID 11/30/19 05/08/22 05/08/22 History buspirone 15 mg tablet 15 mg PO BID PRN Anxiety 03/21/20 05/08/22 01/14/22 History levothyroxine 75 mcg capsule 75 mcg PO ONCE 03/21/20 05/08/22 05/08/22 History metoprolol tartrate 50 mg tablet 50 mg PO DAILY 03/21/20 05/08/22 05/07/22 20:00 History montelukast 10 mg tablet 10 mg PO DAILY 03/21/20 05/08/22 05/07/22 20:00 History pantoprazole 40 mg tablet,delayed 40 mg PO BID 03/21/20 05/08/22 05/08/22 History release (Protonix) Diabetic shoes #1 ea 06/04/20 05/08/22 Unknown Rx metformin 1,000 mg tablet 1,000 mg PO BID 90 days #180 tabs 02/25/21 05/08/22 05/08/22 Rx sitagliptin 100 mg tablet (Januvia) 100 mg PO DAILY 90 days #90 tabs 02/25/21 05/08/22 05/08/22 Rx gabapentin 800 mg tablet 800 mg PO TID neuropathy 30 days 03/26/21 05/08/22 05/07/22 Rx #90 tabs tramadol 50 mg tablet 100 mg PO TID PRN pain 30 days 03/26/21 05/08/22 05/08/22 Rx #180 tabs blood-glucose meter #1 ea 07/23/21 05/08/22 Unknown Rx pen needle, diabetic 31 gauge x #100 ea 07/23/21 05/08/22 Unknown Rx 5/16 [facility] 07/29/21 05/08/22 Unknown Rx Verio test strips) lancets 33 gauge (OneTouch Delica #100 ea 07/30/21 05/08/22 Unknown Rx Lancets) sitagliptin 100 mg tablet (Januvia) 100 mg PO DAILY #90 tabs 09/17/21 05/08/22 Unknown Rx acarbose 50 mg tablet 50 mg PO TID 3 months #270 tabs 11/10/21 05/08/22 05/08/22 Rx ketorolac 10 mg tablet 10 mg PO Q8H PRN pain #10 tabs 04/18/22 05/08/22 05/07/22 20:00 Rx hydrocodone 5 mg-acetaminophen 325 1 tab PO Q6H PRN pain (scale score 04/20/22 05/08/22 05/01/22 Rx mg tablet 7-10) #14 tabs sulfamethoxazole 800 1 tab PO BID #60 tabs 04/29/22 05/08/22 05/08/22 Rx mg-trimethoprim 160 mg tablet Allergies Allergy/AdvReac Type Severity Reaction Status Date / Time codeine Allergy heart Verified 05/08/22 12:02 palpitations metoclopramide [From Reglan] Allergy tongue Verified 05/08/22 12:02 swelling [facility] Anesthesia Medical History Cervical radiculopathy DDD (degenerative disc disease) Encounter for long-term use of opiate analgesic Facet syndrome, lumbar Lumbar radiculitis Lumbar spondylitis Neck pain Recurrent UTI Shoulder pain, bilateral Spinal stenosis of lumbar region Type 2 diabetes mellitus Surgical History S/P section S/P cholecystectomy S/P hysterectomy Family History Mother Rheumatoid arthritis Atrial fibrillation Father , AT AGE 55 Heart attack Other Cancer Social History Smoking and tobacco status: never smoked Second hand smoke exposure: No Alcohol intake: never Adopted: No Caregiver/support person: No Lives independently: Yes Marital status: Current occupational status: disabled History of recent travel: No Data Anesthesia : 05/08/22 15:30 05/08/22 15:30 Short CBC 05/08/22 Range/Units 15:30 WBC 9.4 (4.0-10.0) 10^3/uL Hgb 12.0 (11.5-15.3) g/dL Hct 38.8 (37.0-47.0) % MCV 86.6 (81-99) fl Plt Count 271 (130-400) 10^3/cmm Neut % (Auto) 54.9 % Neut # (Auto) 5.15 (1.8-7.7) 10^3/uL Cardiac Studies: No Data to Display
[2022-05-08 16:36] LABS: Alanine Aminotransferase 44 U/L (0-33); Albumin Level 4.2 g/dL (3.5-5.2); Alkaline Phosphatase 105 U/L (35-105); Anion Gap 17.3 (5-19); Aspartate Amino Transferase 54 U/L (0-32); Blood Urea Nitrogen 10 mg/dL (6-20); Calcium 8.9 mg/dL (8.5-10.5); Carbon Dioxide 16 mmol/L (22-29); Chloride 109 mmol/L (98-107); Globulin 3.6 g/dL (1.3-4.6); Glomerular Filtration Rate 128.6 mL/min (90-130); Glucose 171 mg/dL (65-115); Osmolality Calculated 291 mOsm/kg (285-295); Potassium 3.3 mmol/L (3.5-5.1); Sodium 139 mmol/L (136-145); Total Bilirubin 0.2 mg/dL (0.15-1.2); Total Protein 7.8 g/dL (6.6-8.7)
[2022-05-11] VITALS (7 sets, daily range): BP systolic 113–152; BP diastolic 67–97; PULSE 95–119; RESP 17–19; TEMP 36.3–36.9; O2SAT 93–98
--- NOTE | 2022-05-11 | SCC_ITS ---
Procedure done: 1. Cystoscopy, RIGHT: Retrograde ureteropyelogram 2. RIGHT: Ureteroscopy, stent 34 seconds of fluoroscopic guidance, for a cumulative dose of 11.09 mGy, was provided to Dr. Siddiqui by the radiology department. C-arm images of the abdomen were saved for the patient's permanent record. [facility]
--- NOTE | 2022-05-11 06:01 | P.HPUD_ITS ---
Surgery/Procedure H&P Update DATE OF PROCEDURE: May 11, 2022 DATE H&P PERFORMED: 05/08/22 H&P UPDATE INFORMATION: I have reviewed H&P completed within last 30 days, I have examined patient prior to procedure, No changes to prior documentation and H&P is in [facility] EMR on date indicated CHANGES TO PREVIOUS DOCUMENTATION: I think I can see the stone better on today's KUB than previously. Seems to be in the same position. Still quite symptomatic. It took a while but ultimately we had a prior authorization from [facility] on proceeding on with his very symptomatic patient has been dealing with a stone now for 3+ PREOP DIAGNOSIS: Refractory right distal ureteral stone PLANNED PROCEDURE: Operation Date: 05/11/22 08:10 Proposed Procedures p CYSTOSCOPY RIGHT RETROGRADE URETEROSCOPY LASER STENT [id number] [facility] 26 [id number],N20.1,N39.0(Not Applicable) - Loco Siddiqui MD s Retrograde Pyelogram(Right) - Loco Siddiqui MD s Ureteroscopy(Right) - Loco Siddiqui MD s Laser Lithotripsy(Right) - Loco Siddiqui MD s Ureteral Stent Placement(Right) - Loco Siddiqui MD
--- NOTE | 2022-05-11 06:18 | XRR_ITS ---
PROCEDURE INFORMATION: Exam: XR Abdomen Exam date and time: 05/11/2022 6:37 AM Age: 52 years old Clinical indication: Screening exam; Other: Preop right ureteroscopy TECHNIQUE: Imaging protocol: Radiologic exam of the abdomen. Views: Frontal supine view of the abdomen. 1 View. Total images: 1080 COMPARISON: CR XR KUB [id number] 05/08/2022 11:20 AM FINDINGS: Gastrointestinal tract: Bowel gas pattern is nondistended and nonobstructive. Organs: No renal, ureteral, nor bladder calculi detected. Surgical clips are present in the right upper quadrant which are suggestive of prior cholecystectomy. Bones/joints: Unremarkable. XR/XR KUB [id number] IMPRESSION: 1. No renal, ureteral, nor bladder calculi detected. 2. Normal bowel gas pattern
--- NOTE | 2022-05-11 06:18 | SC_ITS ---
WS: [id number] INTRAOPERATIVE TECHNIQUE: 7 Spot fluoroscopic images for intraoperative purposes. FLUOROSCOPY TIME: 34.0 seconds CLINICAL INFORMATION: Right ureteroscopy COMPARISON: None. FINDINGS: Intraoperative RIGHT ureteroscopy. Filling of the RIGHT ureter and renal collecting system with doubl e-J ureteral stent deployment. SC/C-arm FL for Urology IMPRESSION: Images obtained for intraoperative purposes.
[2022-05-11] MEDS: sodium chloride 0.9% 1,000 ML 30 ML IV (07:12)
[2022-05-11 07:16] LABS: Glucose Point of Care 189 mg/dL (70-110)
--- NOTE | 2022-05-11 07:22 | P.ANESUD_ITS ---
Pre-Anesthetic Update Pre-Anesthetic Assessment: Date of Surgery/Procedure: 05/11/22 Preop Rupinder gnosis: Refractory right distal ureteral stone Proposed Procedure: Operation Date: 05/11/22 08:10 Proposed Procedures p CYSTOSCOPY RIGHT RETROGRADE URETEROSCOPY LASER STENT [address] [facility] 26 [id number],N20.1,N39.0(Not Applicable) - MD jody Holley Retrograde Pyelogram(Right) - MD jody Holley Ureteroscopy(Right) - MD jody Holley Laser Lithotripsy(Right) - MD jody Holley Ureteral Stent Placement(Right) - Loco Siddiqui MD Any changes to Pre-Anesthetic Assessment?: No Last Intake: Intake Last Liquid Date 05/10/22 Last Liquid Time 21:30 Last Solid Date 05/10/22 Last Solid Time 21:30 Vitals: Temperature 97.3 F L 05/11/22 07:00 Temperature Source Temporal Artery S can 05/11/22 07:00 Pulse Rate 119 H 05/11/22 07:00 Respiratory Rate 18 05/11/22 07:00 Blood Pressure 152/97 05/11/22 07:00 Blood Pressure Caterina n 115 05/11/22 07:00 Pulse Oximetry 98 05/11/22 07:00 Oxygen Delivery Me thod 05/11/22 07:01 Exam: Pre-Anes Outpt Exam: alert, oriented x 3, clear to auscultation bilaterally and regular rate & rhythm Cardiac Studies: No Data to Display
[2022-05-11] MEDS: ketorolac 30 mg/mL INJ 15 MG IVP (07:44)
--- NOTE | 2022-05-11 11:47 | P.OP_ITS ---
Operative Report Date of procedure: May 11, 2022 Pre-op diagnosis: Refractory right distal ureteral stone Post-op diagnosis: Spontaneously passed right distal ureteral stone Procedure done: 1. Cystoscopy, RIGHT: Retrograde ureteropyelogram 2. RIGHT: Ureteroscopy, stent Implants: Right ureteral stent Specimens removed/disposition: None Pathology: None Surgeon: Chen Estimated blood loss: None Urine output: Not measured Complications: None Findings: Anesthesia: General Condition: Stable Disposition: PACU Intraoperative findings: * Stone had spontaneously passed. * There was still some significant dilation of the ureter and some inflammatory changes in the distal ureter but at some point probably after her KUB this morning the stone had passed. Brief History: Adilia is a very pleasant 52-year-old white female who was diagnosed on 18 April with a obstructing 5 mm right distal ureteral stone and was quite symptomatic. She was managed aggressively with pain medication and wanted to see if she could pass the stone. There is no significant progression over time and ultimately with increasing symptoms she elected to proceed with intervention. She is admitted now to Outpatient Surgery for attempt at definitive treatment of the stone via endoscopic approach. Procedure: After preoperative evaluation examination and obtaining of informed consent she was taken to the operating suite on 05/11/2022 where general anesthesia was administered without difficulty after appropriate timeout was performed, SCDs confirmed to be functioning, preoperative antibiotics administered, beta-analia protocol confirmed. Prepped and draped in usual sterile fashion in dorsolithotomy position paying careful attention to avoiding pressure points. 21 Monegasque cystoscope with 30 degree lens was introduced into the urethra meatus and advanced into the bladder under videoscopy. Bladder was systematically examined. No stones were seen. An 8 [place] cone-tip catheter was intubated into the right ureteral orifice for right retrograde ureteropyelogram which showed some narrowing in the distal ureter but no clear-cut filling defect consistent with a stone seen previously. The ureter the ureter above the narrowed area did appear to be moderately dilated. Pyelocalyceal system showed no evidence of stones or filling defects but did show some hydronephrosis A flexible tip guidewire was then passed without difficulty up the right ureter into the upper pole calyx. The wire was secured to the drapes as a safety wire. A 7 Monegasque offset semirigid ureteroscope was then advanced up the right ureter and the distal ureter where the stone had been seen on CT scan was carefully inspected. There was some inflammatory change consistent with recent stone but I could not see any evidence of a stone. The ureter proximal to that point was somewhat dilated. The scope was passed all the way to the UPJ and no stones were seen. Careful inspection of the ureter with slow withdrawal of the scope confirmed the entry findings. Based on the inflammatory changes noted it was decided to leave a temporary stent then. Cystoscope was then backloaded over th the guidewire and a 4.5 Monegasque by 28 cm double-pigtail stent was advanced over the guidewire through the cystoscope into appropriate position as confirmed via fluoroscopy and cystoscopy. Bladder was drained. Procedure was completed. She tolerated procedure well without complications and was awakened in the operating room and returned to the recovery room in stable condition. PLANS: 1. Anticipate discharge from outpatient surgery 2. Stent removal later this week in clinic.
[2022-05-11] MEDS: levofloxacin-dextrose 5 % 500 MG/100 ML PREMIX 100 MG IV (11:57)
--- NOTE | 2022-05-11 13:52 | ANE.PACU2 ---
Inpatient post-anesthesia follow up: Airway intact: Yes Vital signs: Temperature 98.2 F Pulse Rate 103 Respiratory Rate 18 Blood Pressure 119/78 Pulse Oximetry 94 Oxygen Delivery Me thod Room Air Oxygen Flow Rate 6 Fraction of Inspir ed Oxygen Hydration adequate: Yes Nausea and vomiting: No Pain level: 1 Mental status: Baseline
== END 2022-05-11 14:07 | disposition home or self-care (01) ==
PROVIDERS: PCP Nurse Practitioner Family; Visit Provider Urology
PROC: 0TJB8ZZ Inspection of Bladder, Via Natural or Artificial Opening Endoscopic (ICD-10-PCS; CPT 52000; principal; 2022-05-11 07:50)
PROC: (CPT 74420; 2022-05-11 07:50)
PROC: 0TJ98ZZ Inspection of Ureter, Via Natural or Artificial Opening Endoscopic (ICD-10-PCS; CPT 52351; 2022-05-11 07:50)
PROC: (CPT 50605; 2022-05-11 07:50)
DX: N20.1 Calculus of ureter (principal); I10 Essential (primary) hypertension; K21.9 Gastro-esophageal reflux disease without esophagitis; G89.29 Other chronic pain; Z79.01 Long term (current) use of anticoagulants; E11.9 Type 2 diabetes mellitus without complications; Z79.84 Long term (current) use of oral hypoglycemic drugs
CPT/HCPCS: 52332; 52351; 36415; 36416; 74018; 76000; 80053; 82962; 85025; C2625; J1100; J1885; J1956; J2405; J2704; J3010; J3490; J7030

== ENCOUNTER → 2022-05-15 10:31 | Outpatient (BNVA) | payer MEDICARE, MEDICAID, SELFPAY | PROVIDERS: PCP Nurse Practitioner Family; Visit Provider Urology | DX: Z96.0 Presence of urogenital implants (principal); N20.1 Calculus of ureter; N39.0 Urinary tract infection, site not specified | CPT/HCPCS: 52310; 81003 ==

== ENCOUNTER → 2022-06-25 14:50 | Outpatient (BNVA) | payer MEDICARE, MEDICAID, SELFPAY | PROVIDERS: PCP Nurse Practitioner Family; Visit Provider Podiatrist Foot & Ankle Surgery | DX: E11.40 Type 2 diabetes mellitus with diabetic neuropathy, unspecified (principal); M20.41 Other hammer toe(s) (acquired), right foot; M20.42 Other hammer toe(s) (acquired), left foot; L60.3 Nail dystrophy; M21.41 Flat foot [pes planus] (acquired), right foot; M21.42 Flat foot [pes planus] (acquired), left foot; Z79.84 Long term (current) use of oral hypoglycemic drugs | CPT/HCPCS: 11055; 11721 ==

== ENCOUNTER 2022-09-01 13:21 | Emergency (ER) | payer MEDICARE, MEDICAID, SELFPAY ==
[2022-09-01 13:22] VITALS: BP 174/108; PULSE 79; RESP 20; TEMP 37.1; O2SAT 96; BMI 33.8
--- NOTE | 2022-09-01 14:41 | ED_ITS ---
HPI - Dental/Oral General: Chief complaint: Dental/Oral Stated complaint: dental pain Time Seen by Provider: 09/01/22 13:56 History of Present Illness: Patient is in today for left upper dental pain. She reports that she has been seeing a dentist and last Wednesday she did have 2 teeth pulled on her left upper jaw. She reports that she had dental abscess. She states that she has been on antibiotics. She is still having continued pain. She states that she does have an appointment at 4 PM today in [place] with the dentist. She is here today to try and get pain control until she can get to her dentist appointment. When further questioned, she does state that she is in a pain contract at home and takes tramadol and also Motrin. Review of Systems Const: Denies: chills or body aches ENMT: Reports: dental pain Card: Denies: chest pain or palpitations Resp: Denies: dyspnea, productive cough or non-productive cough GI: Denies: abdominal pain, nausea or vomiting : Denies: flank pain or dysuria PFSH ED PFSH: Medical History Cervical radiculopathy DDD (degenerative disc disease) Encounter for long-term use of opiate analgesic Facet syndrome, lumbar Lumbar radiculitis Lumbar spondylitis Neck pain Recurrent UTI Shoulder pain, bilateral Spinal stenosis of lumbar region Type 2 diabetes mellitus Surgical History S/P section S/P cholecystectomy S/P hysterectomy Family History Mother Rheumatoid arthritis Atrial fibrillation Father , AT AGE 55 Heart attack Other Cancer Social History Smoking and tobacco status: never smoked Second hand smoke exposure: No Alcohol intake: never Adopted: No Caregiver/support person: No Lives independently: Yes Marital status: Current occupational status: disabled Physical Exam Const: COMMON NORMALS: no acute distress, patient oriented x3 and alert HENMT: TEETH & GINGIVA: Yes poor dentition and Yes other (Recent tooth pulled left upper jaw. Some erythema) OTHER: Some erythema to surrounding gingiva surrounding the site of recent tooth extraction. No oozing or drainage appreciated. No definitive drainable abscess noted to the gingiva. Neck/C-Spine: COMMON NORMALS: no JVD Resp: COMMON NORMALS: normal respiratory effort, No use of accessory muscles and clear to auscultation bilaterally AUSCULTATION: clear to auscultation bi laterally Cardio: COMMON NORMALS: no JVD, regular rate, regular rhythm, S1 normal heart sound present and S2 normal heart sound present RATE: regular rate RHYTHM: regular rhythm HEART SOUNDS: S1 normal heart sound present and S2 normal heart sound present Neuro: COMMON NORMALS: patient oriented x3, moves all extremities and no focal motor deficits SENSORIUM/ORIENTATION: Yes alert Course Vital Signs: Vital signs: Vital Signs Temperature 98.8 F 09/01/22 13:22 Pulse Rate 79 09/01/22 13:22 Respiratory Rate 20 H 09/01/22 13:22 Blood Pressure 174/108 09/01/22 13:22 Pulse Oximetry 96 09/01/22 13:22 Oxygen Delivery Me thod 09/01/22 13:22 MDM - Dental/Oral Medical Decision Making Patient is in today for pain control for dental pain. She reports having teeth pulled last Wednesday and has been on antibiotics x1 week and still has pain. She reports that she has an appointment in [place] with the dentist at 4 PM today. It was 230 when I was evaluating the patient in the ER. She states that she still has to run home and go to the dentist. Patient is asking for a shot of pain medication. I question her further and she did confirm that she is in a pain contract currently and takes tramadol at home. She reports her last tramadol or ibuprofen was earlier this morning. I advised her that I would be agreeable to giving her 1 dose of Toradol to help with her acute pain. I advised her to keep her appointment with dental today at 4 PM. Follow-up with primary care provider as needed. Return to the ER for new or worsening symptoms. Discharge Plan Discharge Patient Disposition: Home Clinical Impression: Toothache Condition: Stable Prescriptions: No Action ropinirole 1 mg tablet 1 mg PO .at bedtime venlafaxine [Effexor XR] 150 mg capsule,extended release 24hr 150 mg PO QAM Allergy Relief (cetirizine) 10 mg capsule 10 mg PO ONCE venlafaxine 75 mg capsule,extended release 24hr 75 mg PO QAM Trokendi XR 100 mg capsule,extended release 24hr 100 mg PO BID glipizide 10 mg tablet 10 mg PO BID (DME) Diabetic shoes See Rx Instructions .ROUTE .MEDSUPPLY Qty: 1 0RF Rx Instructions: with 3 inserts levothyroxine 75 mcg capsule 75 mcg PO ONCE buspirone 15 mg tablet 15 mg PO BID PRN (Reason: Anxiety) metoprolol tartrate 50 mg tablet 50 mg PO DAILY montelukast 10 mg tablet 10 mg PO DAILY pantoprazole [Protonix] 40 mg tablet,delayed release (DR/EC) 40 mg PO BID metformin 1,000 mg tablet 1,000 mg PO BID 90 Days Qty: 180 3RF Rx Instructions: take 1 tablet twice a day Januvia 100 mg tablet 100 mg PO DAILY 90 Days Qty: 90 3RF Rx Instructions: take 1 tablet daily tramadol 50 mg tablet 100 mg PO TID PRN (Reason: pain) 30 Days Qty: 180 2RF Rx Instructions: Fill on or after 03/26/21, 04/25/21 and 05/25/21 gabapentin 800 mg tablet 800 mg PO TID 30 Days Qty: 90 2RF sulfamethoxazole-trimethoprim 800-160 mg tablet 1 tab PO BID Qty: 60 2RF (DME) Diabetic shoes with 3 sets of inserts See Rx Instructions .Route .MEDSUPPLY Qty: 1 0RF Rx Instructions: As directed ([facility]) blood-glucose meter Misc See Rx Instructions .Route Qty: 1 0RF Rx Instructions: Check BS 4-6 times a day. (DME) pen needle, diabetic 31 gauge x 5/16 needle See Rx Instructions .Route Qty: 100 3RF Rx Instructions: As directed ([facility]) OneTouch Verio test strips Strip See Rx Instructions .Route Qty: 100 3RF Rx Instructions: As directed ([facility]) lancets [OneTouch Delica Lancets] 33 gauge misc See Rx Instructions .Route Qty: 100 3RF Rx Instructions: As directed acarbose 50 mg tablet 50 mg PO TID 90 Days Qty: 270 3RF Rx Instructions: take 1 tablet 3 times a day hydrocodone-acetaminophen 5-325 mg tablet 1 tab PO Q6H PRN (Reason: pain (scale score 7-10)) Qty: 14 0RF ketorolac 10 mg tablet 10 mg PO Q8H PRN (Reason: pain) Qty: 10 0RF Discharge Orders: Discharge ED (Routine); Ordered 09/01/22 Ordered By: Cookie Shaffer Referrals: Andreina Shaffer APN [Primary Care Provider] - Discharge Diet: Advance as tolerated Discharge Activity: Resume usual activity Patient Instructions: Toothache (ED) Activity Restrictions/Additional Instructions: Keep your appointment with dental today at 4 PM. No more ibuprofen for 8 hours after receiving Toradol in here today. Follow-up with primary care as needed. 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
[2022-09-01] MEDS: ketorolac 30 mg/mL INJ IM (14:43)
== END 2022-09-01 14:53 | disposition home or self-care (01) ==
PROVIDERS: Emergency Provider Nurse Practitioner Family; PCP Nurse Practitioner Family
DX: K08.89 Other specified disorders of teeth and supporting structures (principal); Z79.84 Long term (current) use of oral hypoglycemic drugs; E11.9 Type 2 diabetes mellitus without complications
CPT/HCPCS: 96372; 99284; J1885

== ENCOUNTER → 2022-10-20 14:29 | Outpatient (BNVA) | payer MEDICARE, MEDICAID, SELFPAY | PROVIDERS: PCP Nurse Practitioner Family; Visit Provider Podiatrist Foot & Ankle Surgery | DX: E11.40 Type 2 diabetes mellitus with diabetic neuropathy, unspecified (principal); M20.41 Other hammer toe(s) (acquired), right foot; M20.42 Other hammer toe(s) (acquired), left foot; L60.3 Nail dystrophy; M21.41 Flat foot [pes planus] (acquired), right foot; M21.42 Flat foot [pes planus] (acquired), left foot; L85.1 Acquired keratosis [keratoderma] palmaris et plantaris; Z79.84 Long term (current) use of oral hypoglycemic drugs | CPT/HCPCS: 11055; 11721 ==

== ENCOUNTER 2022-10-29 06:46 | Outpatient (CLI) | payer MEDICARE, MEDICAID, SELFPAY ==
--- NOTE | 2022-10-29 07:10 | XRR_ITS ---
PROCEDURE INFORMATION: Exam: XR Abdomen Exam date and time: 10/29/2022 7:14 AM Age: 52 years old Clinical indication: Condition or disease; Kidney or ureter condition; Calculus (stone) in kidney; Prior surgery; Surgery type: History of gall bladder, appendectomy, , and hysterectomy surgical procedures. ; Additional info: Stones, kub ozh 10/29/22 @ 7:00 am appt to follow; F/u renal stones. TECHNIQUE: Imaging protocol: Radiologic exam of the abdomen. Views: Frontal supine view of the abdomen. 1 View. COMPARISON: CR XR KUB [id number] 05/11/2022 6:37 AM FINDINGS: Gastrointestinal tract: Retained contrast seen in the bowel. Bones/joints: Unremarkable. XR/XR KUB [id number] IMPRESSION: 1. Negative for urinary calculus seen. 2. Retained contrast seen in the bowel.
== END 2022-10-29 06:47 | disposition home or self-care (01) ==
LOC: RAD 06:50
PROVIDERS: PCP Nurse Practitioner Family; Visit Provider Urology
DX: N20.1 Calculus of ureter (principal); N20.9 Urinary calculus, unspecified; N39.0 Urinary tract infection, site not specified
CPT/HCPCS: 74018; 99213

== ENCOUNTER 2022-11-04 14:39 | Outpatient (CLI) | payer MEDICARE, MEDICAID, SELFPAY ==
--- NOTE | 2022-11-04 14:48 | XR_ITS ---
WS: [id number] Exam: XR KUB [id number] Date/Time of Exam: 11/04/2022 2:48 PM Reason For Exam: STONES Comparison 10/29/2022. No bowel obstruction or free air. Moderate amount retained stool in the colon with the opaque materia l in the stool. No sign of organ enlargement. Signs of prior cholecystectomy. Regional bony elements are intact. XR/XR KUB [id number] IMPRESSION: 1. No acute abdominal process. 2. Moderate amount retained stool and opaque debris throughout the colon.
== END 2022-11-04 14:40 | disposition home or self-care (01) ==
LOC: RAD 14:44
PROVIDERS: PCP Nurse Practitioner Family; Visit Provider Urology
DX: N20.9 Urinary calculus, unspecified (principal); N39.0 Urinary tract infection, site not specified; N20.1 Calculus of ureter
CPT/HCPCS: 74018; 81003; 99213

== ENCOUNTER 2022-11-17 07:14 | Outpatient (CLI) | payer MEDICARE, MEDICAID, SELFPAY ==
--- NOTE | 2022-11-17 08:00 | CT_ITS ---
WS: [id number] CT ABDOMEN AND PELVIS NONCONTRAST HISTORY: UROLITHIASIS, RIGHT lower abdominal and pelvic pain for one month. TECHNIQUE: Imaging performed through the abdomen and pelvis. Coronal and sagittal reformats are submi tted. All CT scans at [facility] use at least one of these dose optimization techniques: auto mated exposure control; mA and/or kV adjustment per patient size (includes targeted exams where dose is matched to clinical indication); or iterative reconstruction. DLP: 888.94 mGy.cm COMPARISON: 04/18/2022, 01/20/2013 Lower thorax: Long-term stability 4 mm noncalcified RIGHT middle lobe nodule. Heart size is normal. Liver: Mild hepatomegaly and hepatic steatosis. No bile duct dilatation or mass. Gallbladder: Prior cholecystectomy. Pancreas: Normal size and attenuation. Normal pancreatic duct. No pancreatitis or mass. Spleen: Normal. Adrenal glands: Normal. No mass. Right kidney: Normal size kidney with no mass or hydronephrosis. Left kidney: Normal size kidney. Nonobstructing 5 mm calcification mid kidney is unchanged. No hydron ephrosis. Normal size ureter. Aorta: Normal abdominal aorta, no aneurysm or atherosclerosis. No free fluid, intraperitoneal air or significant lymphadenopathy. GI tract: Nondistended stomach. No small bowel obstruction. Numerous foci of increased density throug hout the colon probably medicinal. No mass identified. The appendix is not definitely identified. No evidence for appendicitis. There is mild diffuse constipation. Abdominal wall: Negative. No hernia. Pelvis: Prior hysterectomy. No free fluid or adenopathy. Nondistended bladder. Osseous structures: L4 anterolisthesis by 10 mm. Bilateral pars defects at L4. Mild SI joint sclerosi s. No fusion. CT/CT kidney stone [id number] IMPRESSION: 1. Negative RIGHT kidney. No renal stones or obstruction. 2. Long-term stability 5 mm nonobstructing calcification mid LEFT kidney. 3. Appendix is not identified but there are no secondary findings of appendici tis. 4. Mild diffuse moderate constipation. 5. Hepatic steatosis and hepatomegaly. 6. Prior cholecystectomy and hysterectomy.
== END 2022-11-17 07:15 | disposition home or self-care (01) ==
PROVIDERS: PCP Nurse Practitioner Family; Visit Provider Urology
DX: N28.89 Other specified disorders of kidney and ureter (principal); K59.00 Constipation, unspecified; K76.0 Fatty (change of) liver, not elsewhere classified; N39.0 Urinary tract infection, site not specified
CPT/HCPCS: 74176; 81003; 87086; 99213

== ENCOUNTER → 2023-01-26 11:17 | Outpatient (BNVA) | payer MEDICARE, MEDICAID, SELFPAY | PROVIDERS: PCP Nurse Practitioner Family; Visit Provider Podiatrist Foot & Ankle Surgery | DX: E11.40 Type 2 diabetes mellitus with diabetic neuropathy, unspecified (principal); M20.41 Other hammer toe(s) (acquired), right foot; M20.42 Other hammer toe(s) (acquired), left foot; M21.41 Flat foot [pes planus] (acquired), right foot; M21.42 Flat foot [pes planus] (acquired), left foot; M19.071 Primary osteoarthritis, right ankle and foot; M19.072 Primary osteoarthritis, left ankle and foot; Z79.84 Long term (current) use of oral hypoglycemic drugs | CPT/HCPCS: 99214 ==

== ENCOUNTER 2023-03-28 10:40 | Emergency (ER) | payer MEDICARE, MEDICAID, SELFPAY ==
[2023-03-28 11:00] VITALS: BP 175/126; PULSE 94; TEMP 36.6; O2SAT 96; BMI 34.0
[2023-03-28 11:18] LABS: Glucose Point of Care 367 mg/dL (70-110)
[2023-03-28] MEDS: insulin regular-human 100 units/1 mL 5 UNIT IVP ×2 (11:29→12:49)
[2023-03-28] MEDS: sodium chloride 0.9% 1,000 ML 999 ML IV (11:31)
[2023-03-28 11:37] LABS: Basophils % 0.6 %; Eosinophils # 0.3 10^3/uL (0.0-0.8); Eosinophils % 4.9 %; Hematocrit 40.4 % (36-47); Lymphocytes # 1.9 10^3/uL (0.8-4.8); Mean Corpuscular HGB Conc 30.2 g/dL (30-55); Monocytes # 0.3 10^3/uL (0.2-0.9); Monocytes % 4.5 %; Neutrophils # 4.33 10^3/uL (1.8-7.7); Neutrophils % 62.7 %; Nucleated Red Blood Cells % 0 %; Platelet Count 268 10^3/cmm (157-399); Red Cell Distribution Width 15.8 % (12.1-15.1)
[2023-03-28 11:49] LABS: Alanine Aminotransferase 37 U/L (0-33); Albumin Level 4.4 g/dL (3.5-5.2); Alkaline Phosphatase 117 U/L (35-105); Anion Gap 17.5 (5-19); Aspartate Amino Transferase 34 U/L (0-32); Blood Urea Nitrogen 11 mg/dL (6-20); Carbon Dioxide 23 mmol/L (22-29); Chloride 98 mmol/L (98-107); Globulin 3.9 g/dL (1.3-4.6); Glomerular Filtration Rate 104.2 mL/min (90-130); Glucose 383 mg/dL (65-115); Osmolality Calculated 295 mOsm/kg (285-295); Potassium 3.5 mmol/L (3.5-5.1); Sodium 135 mmol/L (136-145); Total Bilirubin 0.4 mg/dL (0.15-1.2); Total Protein 8.3 g/dL (6.6-8.7)
[2023-03-28 11:58] VITALS: BP 173/90; PULSE 72; RESP 15; O2SAT 95
--- NOTE | 2023-03-28 12:04 | W.ED.RECABL ---
HPI - Recheck/Abnormal Lab/Rx General: Chief Complaint: Recheck/Abnormal Lab/Rx Stated Complaint: low blood sugar, dizzy, faint Time Seen by Provider: 03/28/23 11:03 History of Present Illness: 52-year-old female presents emergency room with elevated blood sugar. Patient with history of diabetes but noncompliant with her medication. Patient reveals that blood sugar was above 500 at home denies any nausea, vomiting, diarrhea, bloody stool or dark stool. No chest pain, shortness of breath, fever or chills. Review of Systems General: Reports: 10 or more systems reviewed and unremarkable except in HPI and below Const: Denies: fever(s), chills, body aches or change in appetite Card: Denies: chest pain, palpitations, irregular heart rhythm or edema Resp: Denies: dyspnea, productive cough or non-productive cough GI: Denies: abdominal pain, nausea, vomiting, hematemesis, coffee ground emesis, dysphagia, heartburn, early satiety, diarrhea, constipation or bloating Musc: Denies: neck pain, back pain, extremity pain, extremity swelling, joint pain, joint swelling, joint redness, joint warmth, joint stiffness, limited range of motion or muscle cramps Neuro: Denies: headache(s), numbness in extremities, weakness in extremities, sensory changes, lack of coordination, difficulty walking, frequent falls, dizziness, vertigo or confusion PFSH ED PFSH: Medical History Cervical radiculopathy DDD (degenerative disc disease) Encounter for long-term use of opiate analgesic Facet syndrome, lumbar Lumbar radiculitis Lumbar spondylitis Neck pain Recurrent UTI Shoulder pain, bilateral Spinal stenosis of lumbar region Type 2 diabetes mellitus Urolithiasis Surgical History S/P section S/P cholecystectomy S/P hysterectomy Family History Mother Rheumatoid arthritis Atrial fibrillation Father , AT AGE 55 Heart attack Other Cancer Social History Smoking and tobacco status: never smoked Second hand smoke exposure: No Alcohol intake: never Substance/Drug Use: never Adopted: No Caregiver/support person: No Lives independently: Yes Marital status: Current occupational status: disabled Physical Exam Const: COMMON NORMALS: no acute distress, average body habitus, patient oriented x3, no limitations, healthy appearing, alert and well nourished Neck/C-Spine: COMMON NORMALS: no JVD Chest: COMMONS NORMALS: normal inspection of the chest, normal palpation of entire chest wall, normal inspection of the breasts and normal palpation of the breasts Breast/axilla inspection: Yes normal inspection of the breasts BREAST/AXILLA PALPATION: Yes normal palpation of the breasts Resp: COMMON NORMALS: normal respiratory effort, No retractions, No use of accessory muscles, clear to auscultation bilaterally and percussion normal AUSCULTATION: clear to auscultation bilaterally PERCUSSION: percussion normal Cardio: COMMON NORMALS: no JVD, regular rate, regular rhythm, S1 normal heart sound present, S2 normal heart sound present, No gallops present (Cardio), No clicks present (Cardio), No murmurs present (Cardio), No rub (Cardio) and Peripheral pulses 2+ throughout RATE: regular rate RHYTHM: regular rhythm HEART SOUNDS: S1 normal heart sound present and S2 normal heart sound present PERIPHERAL PULSES: Peripheral pulses 2+ throughout GI: COMMON NORMALS: Normal to inspection, nondistended, normoactive bowel sounds present, Soft to palpation, non-tender, No hepatosplenomegaly present, no masses and no bruits PALPATION: Yes Soft to palpation and Yes No hepatosplenomegaly present Extremity: COMMON NORMALS: normal to inspection, full ROM, capillary refill normal, no joint enlargement, no clubbing, cyanosis or edema, no calf tenderness and no pedal edema Neuro: COMMON NORMALS: patient oriented x3 SENSORIUM/ORIENTATION: Yes alert Course Vital Signs: Vital signs: Vital Signs Temperature 97.9 F 03/28/23 11:00 Pulse Rate 72 03/28/23 11:58 Respiratory Rate 15 03/28/23 11:58 Blood Pressure 173/90 03/28/23 11:58 Pulse Oximetry 95 03/28/23 11:58 Oxygen Delivery Me thod Room Air 03/28/23 11:58 MDM - Recheck/Abnormal Lab/Rx Medical Decision Making Patient was made comfortable emergency room and was given IV fluid and IV insulin. Blood sugar did improve significantly. Plan is to monitor patient for few hours of admit patient but patient declined but monitoring admission due to for that she has a go home for burial. Differential Diagnosis Likely encounter for medication refill (Abnormal electrolytes, DKA, infection,) Lab Data 03/28/23 11:04 03/28/23 11:04 Laboratory Results WBC 6.90 10^3/uL (3.29-11.43) 03/28/23 11:04 RBC 4.70 10^6/uL (3.85-5.65) 03/28/23 11:04 Hgb 12.20 g/dL (11.27-16.99) 03/28/23 11:04 Hct 40.4 % (36-47) 03/28/23 11:04 MCV 86.0 fl (85-98) 03/28/23 11:04 MCH 26.0 pg (27-33) L 03/28/23 11:04 MCHC 30.2 g/dL (30-55) 03/28/23 11:04 RDW 15.8 % (12.1-15.1) H 03/28/23 11:04 Plt Count 268 10^3/cmm (157-399) 03/28/23 11:04 MPV 11.0 fL (7.4-10.4) H 03/28/23 11:04 Neut % (Auto) 62.7 % 03/28/23 11:04 Lymph % (Auto) 27.0 % 03/28/23 11:04 Barbour % (Auto) 4.5 % 03/28/23 11:04 Eos % (Auto) 4.9 % 03/28/23 11:04 Baso % (Auto) 0.6 % 03/28/23 11:04 Neut # (Auto) 4.33 10^3/uL (1.8-7.7) 03/28/23 11:04 Lymph # (Auto) 1.9 10^3/uL (0.8-4.8) 03/28/23 11:04 Barbour # (Auto) 0.3 10^3/uL (0.2-0.9) 03/28/23 11:04 Eos # (Auto) 0.3 10^3/uL (0.0-0.8) 03/28/23 11:04 Baso # (Auto) 0.0 10^3/uL (0.0-0.1) 03/28/23 11:04 Nucleated RBC % (auto) 0 % 03/28/23 11:04 Nucleated RBCs # 0.0 /100WBC 03/28/23 11:04 Sodium 135 mmol/L (136-145) L 03/28/23 11:04 Potassium 3.5 mmol/L (3.5-5.1) 03/28/23 11:04 Chloride 98 mmol/L (98-107) 03/28/23 11:04 Carbon Dioxide 23 mmol/L (22-29) 03/28/23 11:04 Anion Gap 17.5 (5-19) 03/28/23 11:04 BUN 11 mg/dL (6-20) 03/28/23 11:04 Creatinine 0.6 mg/dL (0.5-0.9) 03/28/23 11:04 GFR Calculation 104.2 mL/min (90-130) 03/28/23 11:04 Glucose 383 mg/dL (65-115) H 03/28/23 11:04 POC Glucose 363 mg/dL (70-110) H 03/28/23 12:17 Calculated Osmolality 295 mOsm/kg (285-295) 03/28/23 11:04 Calcium 9.0 mg/dL (8.5-10.5) 03/28/23 11:04 Total Bilirubin 0.4 mg/dL (0.15-1.2) 03/28/23 11:04 AST 34 U/L (0-32) H 03/28/23 11:04 ALT 37 U/L (0-33) H 03/28/23 11:04 Alkaline Phosphatase 117 U/L (35-105) H 03/28/23 11:04 Total Protein 8.3 g/dL (6.6-8.7) 03/28/23 11:04 Albumin 4.4 g/dL (3.5-5.2) 03/28/23 11:04 Globulin 3.9 g/dL (1.3-4.6) 03/28/23 11:04 No radiology studies performed this visit Critical Care Time Critical Care Time: Critical Care Time: Yes (35) Total Critical Care Time: 35 Attestation: Time spent monitoring patient closely few times after given insulin. She was given IV insulin and IV fluid for hyperglycemia. Time spent reviewing past medical history and medication list. Time spent discussing labs, treatment and care with patient. Discharge Plan Discharge Patient Disposition: Home Clinical Impression: Encounter for medication refill, Type 2 diabetes mellitus, Hyperglycemia Condition: Stable Prescriptions: New acarbose 50 mg tablet 50 mg PO TID Qty: 90 0RF Januvia 100 mg tablet 100 mg PO DAILY Qty: 90 0RF No Action ropinirole 1 mg tablet 1 mg PO .at bedtime venlafaxine [Effexor XR] 150 mg capsule,extended release 24hr 150 mg PO QAM Allergy Relief (cetirizine) 10 mg capsule 10 mg PO ONCE venlafaxine 75 mg capsule,extended release 24hr 75 mg PO QAM Trokendi XR 100 mg capsule,extended release 24hr 100 mg PO BID glipizide 10 mg tablet 10 mg PO BID (DME) Diabetic shoes See Rx Instructions .ROUTE .MEDSUPPLY Qty: 1 0RF Rx Instructions: with 3 inserts levothyroxine 75 mcg capsule 75 mcg PO ONCE buspirone 15 mg tablet 15 mg PO BID PRN (Reason: Anxiety) metoprolol tartrate 50 mg tablet 50 mg PO DAILY montelukast 10 mg tablet 10 mg PO DAILY pantoprazole [Protonix] 40 mg tablet,delayed release (DR/EC) 40 mg PO BID metformin 1,000 mg tablet 1,000 mg PO BID 90 Days Qty: 180 3RF Rx Instructions: take 1 tablet twice a day Januvia 100 mg tablet 100 mg PO DAILY 90 Days Qty: 90 3RF Rx Instructions: take 1 tablet daily tramadol 50 mg tablet 100 mg PO TID PRN (Reason: pain) 30 Days Qty: 180 2RF Rx Instructions: Fill on or after 03/26/21, 04/25/21 and 05/25/21 gabapentin 800 mg tablet 800 mg PO TID 30 Days Qty: 90 2RF (DME) Diabetic shoes with 3 sets of insoles See Rx Instructions .Route .MEDSUPPLY Qty: 1 0RF Rx Instructions: As directed BY HOME ondansetron 4 mg tablet,disintegrating 4 mg PO Q8H Qty: 10 0RF tamsulosin [Flomax] 0.4 mg capsule 0.4 mg PO DAILY Qty: 14 3RF hydrocodone-acetaminophen 5-325 mg tablet 1 tab PO Q6H PRN (Reason: pain (scale score 7-10)) 5 Days Qty: 20 0RF sulfamethoxazole-trimethoprim 800-160 mg tablet 1 tab PO BID Qty: 60 2RF (DME) Diabetic shoes with 3 sets of inserts See Rx Instructions .Route .MEDSUPPLY Qty: 1 0RF Rx Instructions: As directed (DME) blood-glucose meter Misc See Rx Instructions .Route Qty: 1 0RF Rx Instructions: Check BS 4-6 times a day. (DME) pen needle, diabetic 31 gauge x 5/16 needle See Rx Instructions .Route Qty: 100 3RF Rx Instructions: As directed (DME) OneTouch Verio test strips Strip See Rx Instructions .Route Qty: 100 3RF Rx Instructions: As directed (DME) lancets [OneTouch Delica Lancets] 33 gauge misc See Rx Instructions .Route Qty: 100 3RF Rx Instructions: As directed acarbose 50 mg tablet 50 mg PO TID 90 Days Qty: 270 3RF Rx Instructions: take 1 tablet 3 times a day ketorolac 10 mg tablet 10 mg PO Q8H PRN (Reason: pain) Qty: 10 0RF Discharge Orders: Discharge ED (Routine); Ordered 03/28/23 Ordered By: Ravi Coello Referrals: Andreina Shaffer APN [Primary Care Provider] - Discharge Diet: Advance as tolerated Discharge Activity: Resume usual activity Patient Instructions: Opioid Safety, Pain Management Coding Level of Care Code ED Aircraft Mechanic for Danny Hanson
[2023-03-28 12:19] LABS: Glucose Point of Care 363 mg/dL (70-110)
[2023-03-28 13:10] VITALS: PULSE 75; RESP 15; O2SAT 100
[2023-03-28 13:10] LABS: Glucose Point of Care 326 mg/dL (70-110)
== END 2023-03-28 13:15 | disposition home or self-care (01) ==
PROVIDERS: Emergency Medicine; Emergency Provider Family Medicine; PCP Nurse Practitioner Family
DX: E11.65 Type 2 diabetes mellitus with hyperglycemia (principal); Z76.0 Encounter for issue of repeat prescription; Z79.84 Long term (current) use of oral hypoglycemic drugs
CPT/HCPCS: 36416; 80053; 82962; 85025; 96374; 96375; 99284; J1815; J7030

== ENCOUNTER 2023-04-21 09:54 | Outpatient (CLI) | payer MEDICARE, MEDICAID, SELFPAY ==
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
== END 2023-04-21 09:55 | disposition home or self-care (01) ==
LOC: RAD 09:56
PROVIDERS: PCP Nurse Practitioner Family; Visit Provider Nurse Practitioner Family
DX: M50.31 Other cervical disc degeneration, high cervical region (principal); M41.9 Scoliosis, unspecified
CPT/HCPCS: 72040

== ENCOUNTER 2023-07-14 11:42 | Outpatient (CLI) | payer MEDICARE, MEDICAID, SELFPAY ==
[2023-07-14 12:26] LABS: Basophils % 0.7 %; Eosinophils # 0.3 10^3/uL (0.0-0.8); Eosinophils % 5.8 %; Hematocrit 35.2 % (36-47); Lymphocytes # 1.9 10^3/uL (0.8-4.8); Mean Corpuscular HGB Conc 29.3 g/dL (30-55); Mean Corpuscular Volume 82.1 fl (85-98); Mean Platelet Volume 10.6 fL (7.4-10.4); Monocytes # 0.3 10^3/uL (0.2-0.9); Monocytes % 5.5 %; Neutrophils # 3.19 10^3/uL (1.8-7.7); Neutrophils % 54.8 %; Nucleated Red Blood Cells % 0 %; Platelet Count 260 10^3/cmm (157-399); Red Blood Count 4.29 10^6/uL (3.85-5.65); Red Cell Distribution Width 17.2 % (12.1-15.1); White Blood Count 5.82 10^3/uL (3.29-11.43)
[2023-07-14 12:39] LABS: Estmated Average Glucose 226; Hemoglobin A1C 9.5 % (4.0-6.0)
[2023-07-14 12:58] LABS: Alanine Aminotransferase 29 U/L (0-33); Alkaline Phosphatase 95 U/L (35-105); Aspartate Amino Transferase 38 U/L (0-32); Blood Urea Nitrogen 12 mg/dL (6-20); Calcium 8.9 mg/dL (8.5-10.5); Carbon Dioxide 21 mmol/L (22-29); Chloride 104 mmol/L (98-107); Chol HDL Ratio 4.15 mg/dL (0.0-4.40); Cholesterol 216 mg/dL (0-200); Free T4 Free Thyroxine 1.11 ng/dL (0.82-1.77); Globulin 3.3 g/dL (1.3-4.6); Glomerular Filtration Rate 103.8 mL/min (90-130); Glucose 202 mg/dL (65-115); HDL Cholesterol 52 mg/dL (60-100); LDL Cholesterol Calculated 133 mg/dL (50-129); LDL HDL Ratio 2.56 RATIO (0.00-3.22); Osmolality Calculated 290 mOsm/kg (285-295); Sodium 137 mmol/L (136-145); Thyroid Stimulating Hormone 1.68 uIU/mL (0.27-4.20); Total Bilirubin 0.2 mg/dL (0.15-1.2); Total Protein 7.3 g/dL (6.6-8.7); Triglycerides 156 mg/dL (0-150)
== END 2023-07-14 11:43 | disposition home or self-care (01) ==
LOC: LAB 11:56
PROVIDERS: PCP Nurse Practitioner Family; Visit Provider Nurse Practitioner Family
DX: E11.65 Type 2 diabetes mellitus with hyperglycemia (principal); E78.2 Mixed hyperlipidemia; E03.9 Hypothyroidism, unspecified
CPT/HCPCS: 36415; 80053; 80061; 83036; 84439; 84443; 85025

== ENCOUNTER → 2023-08-04 10:33 | Outpatient (BNVA) | payer MEDICARE, MEDICAID, SELFPAY | PROVIDERS: PCP Nurse Practitioner Family; Visit Provider Podiatrist Foot & Ankle Surgery | DX: E11.40 Type 2 diabetes mellitus with diabetic neuropathy, unspecified (principal); M20.41 Other hammer toe(s) (acquired), right foot; M20.42 Other hammer toe(s) (acquired), left foot; M21.41 Flat foot [pes planus] (acquired), right foot; M21.42 Flat foot [pes planus] (acquired), left foot; Z79.84 Long term (current) use of oral hypoglycemic drugs; Z79.4 Long term (current) use of insulin | CPT/HCPCS: 99213 ==

== ENCOUNTER 2023-08-05 12:20 | Emergency (ER) | payer MEDICARE, MEDICAID, SELFPAY ==
[2023-08-05 12:26] VITALS: BP 129/81; PULSE 85; RESP 18; TEMP 36.6; O2SAT 99
[2023-08-05 13:13] VITALS: BP 135/92; O2SAT 96
--- NOTE | 2023-08-05 13:22 | ED_ITS ---
HPI - Female Genitourinary General: Chief complaint: Urogenital-Female Stated complaint: kidney trouble Time Seen by Provider: 08/05/23 12:57 Source: patient Mode of arrival: ambulatory Limitations: no limitations History of Present Illness: 53-year-old female states over the last 3 days she been having dysuria along with lower abdominal pain pelvic pain states that she believes she has UTI states it feels like previous UTIs denies any fever denies any vomiting denies any diarrhea. Associated symptoms: Reports abdominal pain; Deny headache(s) or nausea Review of Systems Const: Denies: fever(s), chills, body aches or change in appetite ENMT: Denies: throat pain or dental pain Card: Denies: chest pain Resp: Denies: dyspnea GI: Reports: abdominal pain; Denies: nausea, vomiting or diarrhea : Reports: dysuria Musc: Denies: neck pain or back pain Skin/Breast: Denies: rash Neuro: Denies: headache(s) PFSH ED PFSH: Medical History Urolithiasis Recurrent UTI Type 2 diabetes mellitus Neck pain Encounter for long-term use of opiate analgesic DDD (degenerative disc disease) Facet syndrome, lumbar Lumbar radiculitis Spinal stenosis of lumbar region Cervical radiculopathy Lumbar spondylitis Shoulder pain, bilateral Surgical History S/P hysterectomy S/P section S/P cholecystectomy Family History Mother Rheumatoid arthritis Atrial fibrillation Father , AT AGE 55 Heart attack Other Cancer Social History Smoking and tobacco/nicotine status: never used tobacco/nicotine Second hand smoke exposure: No Alcohol intake: never Substance/Drug Use: never Adopted: No Caregiver/support person: No Lives independently: Yes Marital status: Current occupational status: disabled Physical Exam Const: COMMON NORMALS: no acute distress, patient oriented x3 and healthy appearing HENMT: COMMON NORMALS: normocephalic and atraumatic HEAD & SCALP: normocephalic and atraumatic Eye: COMMON NORMALS: Equal, round and reactive pupils present and EOMs intact bilaterally PUPIL: Yes Equal, round and reactive pupils present Neck/C-Spine: COMMON NORMALS: full ROM and supple Chest: COMMONS NORMALS: normal inspection of the chest and normal palpation of entire chest wall Resp: COMMON NORMALS: normal respiratory effort, No retractions, No use of accessory muscles and clear to auscultation bilaterally AUSCULTATION: clear to auscultation bilaterally Cardio: COMMON NORMALS: regular rate, regular rhythm and No murmurs present (Cardio) RATE: regular rate RHYTHM: regular rhythm GI: COMMON NORMALS: Normal to inspection, nondistended, normoactive bowel sounds present, Soft to palpation, non-tender and no masses PALPATION: Yes Soft to palpation Extremity: COMMON NORMALS: normal to inspection and full ROM Neuro: COMMON NORMALS: patient oriented x3, moves all extremities and no focal motor deficits Psych: COMMON NORMALS: mental status grossly normal, Normal thought process present and cooperative THOUGHT PROCESS: Normal thought process present Skin: COMMON NORMALS: no rashes or lesions noted and no wounds GENERAL SKIN EXAM: no rashes or lesions noted Course Vital Signs: Vital signs: Vital Signs Temperature 97.9 F 08/05/23 12:26 Pulse Rate 85 08/05/23 12:26 Respiratory Rate 18 08/05/23 12:26 Blood Pressure 135/92 08/05/23 13:13 Pulse Oximetry 96 08/05/23 13:13 Oxygen Delivery Me thod Room Air 08/05/23 12:26 MDM - Female Medical Decision Making Patient presents here with dysuria likely UTI she has no signs of surgical abdomen or kidney stone we will place her on antibiotics she is follow-up with PCP and return if worsening. Medical Records I reviewed the patient's medical records. Lab Data I reviewed the patient's lab results. Laboratory Results Urine Color Lucas (Yellow) A 08/05/23 13:06 Urine Appearance Cloudy (CLEAR) A 08/05/23 13:06 Urine pH 6 (5-7) 08/05/23 13:06 Ur Specific [place] 1.025 (1.005-1.030) 08/05/23 13:06 Urine Protein 2+ (Negative) H 08/05/23 13:06 Urine Glucose (UA) Norm (Normal) 08/05/23 13:06 Urine Ketones Negative (Negative) 08/05/23 13:06 Urine Blood 3+ (Negative) H 08/05/23 13:06 Urine Nitrate Positive (Negative) H 08/05/23 13:06 Urine Bilirubin 2+ (Negative) H 08/05/23 13:06 Urine Urobilinogen 4 mg/dL (Negative) H 08/05/23 13:06 Ur Leukocyte Esterase 2+ (Negative) H 08/05/23 13:06 Urine RBC 10-15 /hpf (0-2) H 08/05/23 13:06 Urine WBC >100 /hpf (0-5) H 08/05/23 13:06 Ur Squamous Epith Cells 0-4 /hpf (0-5) H 08/05/23 13:06 Ur Transition Epith Cell 5-10 /hpf 08/05/23 13:06 Amorphous Sediment Trace /hpf 08/05/23 13:06 Urine Bacteria 1+ /hpf (NONE) H 08/05/23 13:06 Urine Mucus 1+ /hpf 08/05/23 13:06 No radiology studies performed this visit Discharge Plan Discharge Patient Disposition: Home Clinical Impression: Urinary tract infection Condition: Stable Prescriptions: New cephalexin 500 mg capsule 500 mg PO TID 7 Days Qty: 21 0RF No Action ropinirole 1 mg tablet 1 mg PO BEDTIME venlafaxine [Effexor XR] 150 mg capsule,extended release 24hr 150 mg PO QAM venlafaxine 75 mg capsule,extended release 24hr 75 mg PO QAM (DME) Diabetic shoes See Rx Instructions .ROUTE .MEDSUPPLY Qty: 1 0RF Rx Instructions: with 3 inserts montelukast 10 mg tablet 10 mg PO BEDTIME pantoprazole [Protonix] 40 mg tablet,delayed release (DR/EC) 40 mg PO BID Januvia 100 mg tablet 100 mg PO DAILY 90 Days Qty: 90 3RF gabapentin 800 mg tablet 800 mg PO TID 30 Days Qty: 90 2RF (DME) Diabetic shoes with 3 sets of insoles See Rx Instructions .Route .MEDSUPPLY Qty: 1 0RF Rx Instructions: As directed BY HOME ([facility] – [place], [place]) Diabetic shoes with 3 sets of inserts See Rx Instructions .Route .MEDSUPPLY Qty: 1 0RF Rx Instructions: As directed ([facility] [place], [place]) Diabetic shoes See Rx Instructions .ROUTE .MEDSUPPLY Qty: 1 0RF Rx Instructions: With 3 pairs of inserts made by the shoe guys (DME) blood-glucose meter Misc See Rx Instructions .Route Qty: 1 0RF Rx Instructions: Check BS 4-6 times a day. (DME) pen needle, diabetic 31 gauge x 5/16 needle See Rx Instructions .Route Qty: 100 3RF Rx Instructions: As directed (DME) OneTouch Verio test strips Strip See Rx Instructions .Route Qty: 100 3RF Rx Instructions: As directed (DME) lancets [OneTouch Delica Lancets] 33 gauge misc See Rx Instructions .Route Qty: 100 3RF Rx Instructions: As directed acarbose 50 mg tablet 50 mg PO TID 90 Days Qty: 270 3RF acarbose 50 mg tablet 50 mg PO TID Qty: 90 0RF Januvia 100 mg tablet 100 mg PO DAILY Qty: 90 0RF metformin 500 mg tablet 1,000 mg PO BID Zyrtec 10 mg Tablet 10 mg PO QAM ibuprofen 800 mg tablet 800 mg PO TID PRN (Reason: Pain) metoprolol succinate 50 mg tablet extended release 24 hr 50 mg PO BEDTIME glipizide 10 mg tablet extended release 24hr 10 mg PO BID levothyroxine 75 mcg tablet 75 mcg PO QAM Lantus Solostar U-100 Insulin 100 unit/mL (3 mL) insulin pen See Rx Instructions .ROUTE .COMPLEX Rx Instructions: sliding scale as directed once a day as needed topiramate 200 mg capsule,sprinkle,ER 24hr 200 mg PO BEDTIME sulfamethoxazole-trimethoprim 800-160 mg tablet 1 tab PO BID PRN (Reason: uti) tramadol 50 mg tablet 100 mg PO BEDTIME PRN (Reason: Sleep) ondansetron 4 mg tablet,disintegrating 4 mg PO Q8H PRN (Reason: Nausea And Vomiting) Discharge Orders: Discharge ED (Routine); Ordered 08/05/23 Ordered By: Madeleine Morrison Referrals: Shaffer,CHUY HdzN [Primary Care Provider] - 1-3 days Discharge Diet: Advance as tolerated Discharge Activity: Resume usual activity Patient Instructions: Urinary Tract Infection in Men (ED) Coding Level of Care Code ED Contact Center Director for Danny Hanson
[2023-08-05 13:33] LABS: Blood Urine 3+ (Negative); Glucose Urine UA Norm (Normal); Ketones Urine Negative (Negative); Nitrate Urine Positive (Negative); Protein Urine 2+ (Negative); Specific Gravity, Urine 1.025 (1.005-1.030); Urine Appearance Cloudy (CLEAR); Urine Color Orange (Yellow); pH Urine 6 (5-7)
[2023-08-05 13:34] LABS: Add Urine Microscopic? YES; Bilirubin Urine 2+ (Negative); Leukocyte Esterase Urine 2+ (Negative); Urobilinogen Urine 4 mg/dL (Negative)
[2023-08-05 13:37] LABS: Amorphous Sediment Urine TRACE /hpf; Bacteria Urine 1+ /hpf; Mucus Urine 1+ /hpf; Squamous Epithelial Cell Urine 0-4 /hpf (0-5); WBC Urine >100 /hpf (0-5)
[2023-08-05 13:38] LABS: Add Urine Culture? Yes
[2023-08-05] MEDS: cefTRIAXone 1,000 MG in water for injection-sterile 2.1 ML 2.1 MG IM (14:06)
== END 2023-08-05 14:09 | disposition home or self-care (01) ==
PROVIDERS: Emergency Provider Emergency Medicine; PCP Nurse Practitioner Family
DX: N39.0 Urinary tract infection, site not specified (principal); Z79.4 Long term (current) use of insulin; Z79.84 Long term (current) use of oral hypoglycemic drugs; Z87.440 Personal history of urinary (tract) infections; E11.9 Type 2 diabetes mellitus without complications
CPT/HCPCS: 81001; 87077; 87086; 87186; 96372; 99284; J0696

== ENCOUNTER 2023-09-10 15:49 | Outpatient (CLI) | payer MEDICARE, MEDICAID, SELFPAY ==
--- NOTE | 2023-09-10 16:03 | CT_ITS ---
WS: [id number] CT ABDOMEN AND PELVIS NONCONTRAST HISTORY: PERIUMBILICAL PAIN TECHNIQUE: Imaging performed through the abdomen and pelvis. Coronal and sagittal reformats are submi tted. All CT scans at [facility] use at least one of these dose optimization techniques: auto mated exposure control; mA and/or kV adjustment per patient size (includes targeted exams where dose is matched to clinical indication); or iterative reconstruction. DLP: 824.03 mGy.cm COMPARISON: 11/17/2022 Lower thorax: No change in 3 mm micronodule RIGHT lung base. Stable since 04/18/2022. No pneumonia. He art size is normal. No hiatal hernia. Liver: Diffuse hepatic steatosis and mild hepatomegaly. Gallbladder: Prior cholecystectomy. Normal bile duct. Pancreas: Normal size and attenuation. Normal pancreatic duct. No pancreatitis or mass. Spleen: Normal. Adrenal glands: Normal. No mass. Right kidney: Normal size kidney with no mass or hydronephrosis. Left kidney: Normal size kidney. Nonobstructing 5 mm calcification central kidney. No ureteral dilata tion. Aorta: Normal abdominal aorta, no aneurysm or atherosclerosis. No free fluid, intraperitoneal air or significant lymphadenopathy. GI tract: Normal stomach and small bowel. No obstruction. Normal appendix. Moderate diffuse constipat ion. Very few diverticula in the distal colon. Abdominal wall: Negative. No hernia. Pelvis: Prior hysterectomy. No pelvic mass. Nondistended bladder. No adenopathy. Osseous structures: Bilateral L4 pars defects. Grade 2 anterolisthesis of L4. Similar to prior studie s. IMPRESSION: 1. Normal appendix. 2. Moderate diffuse constipation. 3. Prior cholecystectomy and hysterectomy. 4. No acute abdominal findings.
== END 2023-09-10 15:50 | disposition home or self-care (01) ==
LOC: RAD 15:49
PROVIDERS: PCP Nurse Practitioner Family; Visit Provider Nurse Practitioner Family
DX: K59.00 Constipation, unspecified (principal); Z90.49 Acquired absence of other specified parts of digestive tract
CPT/HCPCS: 74176

== ENCOUNTER → 2023-09-15 07:57 | Outpatient (BNVA) | payer MEDICARE, MEDICAID, SELFPAY | PROVIDERS: PCP Nurse Practitioner Family; Visit Provider Nurse Practitioner Family | DX: D48.5 Neoplasm of uncertain behavior of skin (principal); L57.8 Other skin changes due to chronic exposure to nonionizing radiation; L57.0 Actinic keratosis; D22.62 Melanocytic nevi of left upper limb, including shoulder; L81.4 Other melanin hyperpigmentation | CPT/HCPCS: 11102; 99203 ==

== ENCOUNTER → 2023-10-20 08:18 | Outpatient (BNVA) | payer MEDICARE, MEDICAID, SELFPAY | PROVIDERS: PCP Nurse Practitioner Family; Referring Provider Nurse Practitioner Family; Visit Provider Internal Medicine | DX: E11.42 Type 2 diabetes mellitus with diabetic polyneuropathy (principal); E78.2 Mixed hyperlipidemia; E03.9 Hypothyroidism, unspecified; E11.649 Type 2 diabetes mellitus with hypoglycemia without coma; R29.6 Repeated falls; Z79.890 Hormone replacement therapy; Z79.4 Long term (current) use of insulin; Z79.84 Long term (current) use of oral hypoglycemic drugs; Z79.85 Long-term (current) use of injectable non-insulin antidiabetic drugs | CPT/HCPCS: 99214 ==

== ENCOUNTER → 2023-11-10 13:08 | Outpatient (BNVA) | payer MEDICARE, MEDICAID, SELFPAY | PROVIDERS: PCP Nurse Practitioner Family; Visit Provider Podiatrist Foot & Ankle Surgery | DX: E11.40 Type 2 diabetes mellitus with diabetic neuropathy, unspecified (principal); L60.3 Nail dystrophy; Z79.4 Long term (current) use of insulin; Z79.84 Long term (current) use of oral hypoglycemic drugs | CPT/HCPCS: 11721 ==

== ENCOUNTER 2024-01-20 11:16 | Outpatient (CLI) | payer MEDICARE, MEDICAID, SELFPAY ==
[2024-01-20 12:15] LABS: Estmated Average Glucose 126
[2024-01-20 12:21] LABS: Alanine Aminotransferase 43 U/L (0-33); Albumin Level 4.3 g/dL (3.5-5.2); Alkaline Phosphatase 86 U/L (35-105); Anion Gap 18.1 (5-19); Aspartate Amino Transferase 31 U/L (0-32); Blood Urea Nitrogen 16 mg/dL (6-20); Calcium 9.2 mg/dL (8.5-10.5); Carbon Dioxide 22 mmol/L (22-29); Chloride 107 mmol/L (98-107); Cholesterol 112 mg/dL (0-200); Globulin 3.4 g/dL (1.3-4.6); Glomerular Filtration Rate 86.9 mL/min (90-130); Glucose 142 mg/dL (65-115); HDL Cholesterol 51 mg/dL (60-100); LDL Cholesterol Calculated 39 mg/dL (50-129); LDL HDL Ratio 0.76 RATIO (0.00-3.22); Osmolality Calculated 300 mOsm/kg (285-295); Potassium 4.1 mmol/L (3.5-5.1); Sodium 143 mmol/L (136-145); Total Bilirubin 0.3 mg/dL (0.15-1.2); Total Protein 7.7 g/dL (6.6-8.7); Triglycerides 112 mg/dL (0-150)
[2024-01-20 12:22] LABS: Creatinine Urine, Random 298 mg/dL (28-217); Microalbumin Random Urine 15 ug/dL (0-20)
[2024-01-20 12:30] LABS: Microalbum Creatinine Ratio Ur 50 mg/dL (0-20)
== END 2024-01-20 11:17 | disposition home or self-care (01) ==
LOC: LAB 11:18
PROVIDERS: PCP Nurse Practitioner Family; Visit Provider Internal Medicine
DX: E11.9 Type 2 diabetes mellitus without complications (principal); E11.42 Type 2 diabetes mellitus with diabetic polyneuropathy; E78.2 Mixed hyperlipidemia; E03.9 Hypothyroidism, unspecified
CPT/HCPCS: 36415; 80053; 80061; 82044; 83036

== ENCOUNTER → 2024-02-04 09:45 | Outpatient (BNVA) | payer MEDICARE, MEDICAID, SELFPAY | PROVIDERS: PCP Nurse Practitioner Family; Visit Provider Internal Medicine | DX: E11.42 Type 2 diabetes mellitus with diabetic polyneuropathy (principal); E11.649 Type 2 diabetes mellitus with hypoglycemia without coma; E78.2 Mixed hyperlipidemia; E03.9 Hypothyroidism, unspecified; R29.6 Repeated falls; Z79.84 Long term (current) use of oral hypoglycemic drugs; Z79.85 Long-term (current) use of injectable non-insulin antidiabetic drugs; Z79.890 Hormone replacement therapy | CPT/HCPCS: 99214 ==

== ENCOUNTER → 2024-03-08 08:10 | Outpatient (BNVA) | payer MEDICARE, MEDICAID, SELFPAY | PROVIDERS: PCP Nurse Practitioner Family; Visit Provider Podiatrist Foot & Ankle Surgery | DX: E11.8 Type 2 diabetes mellitus with unspecified complications (principal); E11.40 Type 2 diabetes mellitus with diabetic neuropathy, unspecified; L60.3 Nail dystrophy; Z79.84 Long term (current) use of oral hypoglycemic drugs | CPT/HCPCS: 11721; 99212 ==

== ENCOUNTER → 2024-03-16 08:46 | Outpatient (BNVA) | payer MEDICARE, MEDICAID, SELFPAY | PROVIDERS: PCP Nurse Practitioner Family; Visit Provider Podiatrist Foot & Ankle Surgery | DX: L60.3 Nail dystrophy (principal) | CPT/HCPCS: 11750 ==

== ENCOUNTER → 2024-04-13 09:00 | Outpatient (BNVA) | payer MEDICARE, MEDICAID, SELFPAY | PROVIDERS: PCP Nurse Practitioner Family; Visit Provider Podiatrist Foot & Ankle Surgery | DX: L60.3 Nail dystrophy (principal); L60.0 Ingrowing nail; E11.69 Type 2 diabetes mellitus with other specified complication; Z79.84 Long term (current) use of oral hypoglycemic drugs | CPT/HCPCS: 11750 ==

== ENCOUNTER 2024-08-03 08:28 | Outpatient (CLI) | payer MEDICARE, MEDICAID, SELFPAY ==
[2024-08-03 09:22] LABS: Creatinine Urine, Random 139 mg/dL (28-217); Microalbum Creatinine Ratio Ur 22 mg/dL (0-20); Microalbumin Random Urine 3 ug/dL (0-20)
[2024-08-03 09:32] LABS: Alanine Aminotransferase 13 U/L (0-33); Alkaline Phosphatase 88 U/L (35-105); Aspartate Amino Transferase 15 U/L (0-32); Blood Urea Nitrogen 12 mg/dL (6-20); Calcium 8.9 mg/dL (8.5-10.5); Carbon Dioxide 23 mmol/L (22-29); Chloride 104 mmol/L (98-107); Chol HDL Ratio 3.47 mg/dL (0.0-4.40); Cholesterol 198 mg/dL (0-200); Free T4 Free Thyroxine 1.06 ng/dL (0.82-1.77); Globulin 2.9 g/dL (1.3-4.6); Glomerular Filtration Rate 103.4 mL/min (90-130); Glucose 54 mg/dL (65-115); HDL Cholesterol 57 mg/dL (60-100); LDL Cholesterol Calculated 105 mg/dL (50-129); LDL HDL Ratio 1.84 RATIO (0.00-3.22); Osmolality Calculated 285 mOsm/kg (285-295); Sodium 139 mmol/L (136-145); Thyroid Stimulating Hormone 0.53 uIU/mL (0.27-4.20); Total Bilirubin 0.2 mg/dL (0.15-1.2); Total Protein 6.9 g/dL (6.6-8.7); Triglycerides 178 mg/dL (0-150)
[2024-08-03 09:33] LABS: Anion Gap 15.5 (5-19); Potassium 3.5 mmol/L (3.5-5.1)
[2024-08-03 09:47] LABS: Estmated Average Glucose 100; Hemoglobin A1C 5.1 % (4.0-6.0)
== END 2024-08-03 08:29 | disposition home or self-care (01) ==
PROVIDERS: PCP Nurse Practitioner Family; Visit Provider Internal Medicine
DX: E11.649 Type 2 diabetes mellitus with hypoglycemia without coma (principal); E11.42 Type 2 diabetes mellitus with diabetic polyneuropathy; E11.9 Type 2 diabetes mellitus without complications; E78.2 Mixed hyperlipidemia; E03.9 Hypothyroidism, unspecified
CPT/HCPCS: 36415; 80053; 80061; 82044; 83036; 84439; 84443

== ENCOUNTER → 2024-08-07 11:17 | Outpatient (BNVA) | payer MEDICARE, MEDICAID, SELFPAY | PROVIDERS: PCP Nurse Practitioner Family; Visit Provider Internal Medicine | DX: E11.649 Type 2 diabetes mellitus with hypoglycemia without coma (principal); E78.2 Mixed hyperlipidemia; E03.9 Hypothyroidism, unspecified; E11.9 Type 2 diabetes mellitus without complications; E11.42 Type 2 diabetes mellitus with diabetic polyneuropathy; R29.6 Repeated falls | CPT/HCPCS: 99214 ==

== ENCOUNTER → 2024-09-19 13:25 | Outpatient (BNVA) | payer MEDICARE, MEDICAID, SELFPAY | PROVIDERS: PCP Nurse Practitioner Family; Visit Provider Nurse Practitioner Family | DX: L30.9 Dermatitis, unspecified (principal); L44.8 Other specified papulosquamous disorders; L57.8 Other skin changes due to chronic exposure to nonionizing radiation; L81.4 Other melanin hyperpigmentation; D22.62 Melanocytic nevi of left upper limb, including shoulder; L82.1 Other seborrheic keratosis | CPT/HCPCS: 99213 ==

== ENCOUNTER 2024-10-26 13:30 | Outpatient (CLI) | payer OTHER, MEDICAID, SELFPAY ==
--- NOTE | 2024-10-26 13:35 | MM_ITS ---
WS: [id number] BILATERAL SCREENING DIGITAL TOMOSYNTHESIS MAMMOGRAM WITH CAD HISTORY: SCREENING COMPARISON: 10/31/2014 Bilateral CC and MLO views with tomosynthesis and synthetic mammography submitted. Computer aided detection analyzed. Breast composition: There are scattered areas of fibroglandular density. No suspicious masses, microcalcifications or architectural distortion. Benign calcifications RIGHT breast. These are oil cysts and may be related to prior trauma. MM/MM scr BI tomosynthesis [id number] IMPRESSION: BI-RADS: 2 - Benign. FOLLOW UP: 1 Year Follow-up
== END 2024-10-26 13:31 | disposition home or self-care (01) ==
LOC: RAD 13:32
PROVIDERS: PCP Nurse Practitioner Family; Visit Provider Nurse Practitioner Family
DX: Z12.31 Encounter for screening mammogram for malignant neoplasm of breast (principal); R92.323 Mammographic fibroglandular density, bilateral breasts; R92.1 Mammographic calcification found on diagnostic imaging of breast
CPT/HCPCS: 77063; 77067

== ENCOUNTER → 2024-11-24 09:31 | Outpatient (BNVA) | payer OTHER, MEDICAID, SELFPAY | PROVIDERS: PCP Nurse Practitioner Family; Referring Provider Nurse Practitioner Family; Visit Provider Specialist | DX: G43.711 Chronic migraine without aura, intractable, with status migrainosus (principal); G43.909 Migraine, unspecified, not intractable, without status migrainosus; G31.84 Mild cognitive impairment of uncertain or unknown etiology; E11.42 Type 2 diabetes mellitus with diabetic polyneuropathy | CPT/HCPCS: 99204 ==

== ENCOUNTER 2024-12-12 09:24 | Outpatient (CLI) | payer OTHER, MEDICAID, SELFPAY ==
--- NOTE | 2024-12-12 09:30 | MR_ITS ---
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 COMPARISON: 07/30/[address] 11/01/2015 TECHNIQUE: Diffusion imaging, multiplanar T1, T2 and FLAIR imaging obtained. No acute infarct. Normal diffusion imaging. Minimal small vessel disease in the supratentorial brain. There is an area of abnormal signal in the LEFT cerebellum which has been present on the prior studies. There may be a tiny amount of hemosiderin present. This area was calcified on a remote CT. No progression. No large territory infarct. Ventricles and extra-axial spaces are normal. No inferior displacement of cerebellar tonsils. The sella turcica and pituitary gland are unremarkable. Dural venous sinuses and qagan [place] of [place] demonstrate no abnormality on this unenhanced studies. Paranasal sinuses: Clear. Mastoid air cells: Normal. Calvarium and scalp: Intact. MR/MR head wo con* [id number] IMPRESSION: 1. No acute infarcts. Normal diffusion imaging. 2. Long-term stability signal abnormality in the LEFT cerebellum may be from p rior trauma or infarct. Small AVM is not excluded as calcifications were noted on remote CT from 2016. 3. Minimal small vessel disease. 4. No significant atrophy. 5. No hippocampal atrophy.
== END 2024-12-12 09:25 | disposition home or self-care (01) ==
LOC: RAD 09:25
PROVIDERS: PCP Nurse Practitioner Family; Visit Provider Specialist
DX: G43.711 Chronic migraine without aura, intractable, with status migrainosus (principal); R93.0 Abnormal findings on diagnostic imaging of skull and head, not elsewhere classified
CPT/HCPCS: 70551

== ENCOUNTER → 2025-02-26 11:46 | Outpatient (BNVA) | payer OTHER, MEDICAID, SELFPAY | PROVIDERS: PCP Nurse Practitioner Family; Referring Provider Nurse Practitioner Family; Visit Provider Specialist | DX: G43.711 Chronic migraine without aura, intractable, with status migrainosus (principal); G31.84 Mild cognitive impairment of uncertain or unknown etiology; E11.42 Type 2 diabetes mellitus with diabetic polyneuropathy | CPT/HCPCS: 99214 ==

== ENCOUNTER 2025-03-19 08:20 | Outpatient (CLI) | payer OTHER, MEDICAID, SELFPAY ==
[2025-03-19 10:01] LABS: Alanine Aminotransferase 15 U/L (0-33); Albumin Level 4.1 g/dL (3.5-5.2); Alkaline Phosphatase 68 U/L (35-105); Anion Gap 15.6 (5-19); Aspartate Amino Transferase 19 U/L (0-32); Blood Urea Nitrogen 19 mg/dL (6-20); Calcium 9.3 mg/dL (8.5-10.5); Carbon Dioxide 23 mmol/L (22-29); Chloride 106 mmol/L (98-107); Cholesterol 247 mg/dL (0-200); Free T4 Free Thyroxine 1.19 ng/dL (0.82-1.77); Globulin 3.1 g/dL (1.3-4.6); Glucose 105 mg/dL (65-115); HDL Cholesterol 61 mg/dL (60-100); Osmolality Calculated 295 mOsm/kg (285-295); Potassium 3.6 mmol/L (3.5-5.1); Sodium 141 mmol/L (136-145); Thyroid Stimulating Hormone 0.86 uIU/mL (0.27-4.20); Total Protein 7.2 g/dL (6.6-8.7); Triglycerides 235 mg/dL (0-150)
[2025-03-19 10:23] LABS: Estmated Average Glucose 105; Hemoglobin A1C 5.3 % (4.0-6.0)
[2025-03-19 10:43] LABS: Creatinine Urine, Random 76 mg/dL (28-217); Microalbum Creatinine Ratio Ur 13 mg/dL (0-20)
== END 2025-03-19 08:21 | disposition home or self-care (01) ==
LOC: LAB 08:22
PROVIDERS: PCP Nurse Practitioner Family; Visit Provider Internal Medicine
DX: E03.9 Hypothyroidism, unspecified (principal); E78.2 Mixed hyperlipidemia; E11.9 Type 2 diabetes mellitus without complications; E11.649 Type 2 diabetes mellitus with hypoglycemia without coma; E11.42 Type 2 diabetes mellitus with diabetic polyneuropathy
CPT/HCPCS: 36415; 80053; 80061; 82044; 83036; 84439; 84443

== ENCOUNTER → 2025-03-20 09:13 | Outpatient (BNVA) | payer OTHER, MEDICAID, SELFPAY | PROVIDERS: PCP Nurse Practitioner Family; Visit Provider Internal Medicine | DX: E11.649 Type 2 diabetes mellitus with hypoglycemia without coma (principal); E78.2 Mixed hyperlipidemia; E03.9 Hypothyroidism, unspecified; E11.9 Type 2 diabetes mellitus without complications; E11.42 Type 2 diabetes mellitus with diabetic polyneuropathy; R29.6 Repeated falls; Z79.84 Long term (current) use of oral hypoglycemic drugs | CPT/HCPCS: 99214 ==